=== PATIENT | male | born 1955 | race Caucasian/White ===

== ENCOUNTER → 2020-05-13 08:42 | Outpatient (BNVA) | payer MEDICARE, MEDICAID, SELFPAY | PROVIDERS: PCP Internal Medicine; Visit Provider Nurse Practitioner | DX: G47.9 Sleep disorder, unspecified (principal); R13.10 Dysphagia, unspecified | CPT/HCPCS: Q3014 ==

== ENCOUNTER 2020-10-29 14:19 | Emergency (ER) | payer MEDICARE, MEDICAID, SELFPAY ==
[2020-10-29 14:23] VITALS: BP 227/101; PULSE 78; RESP 18; TEMP 36.8; O2SAT 96; BMI 34.0
--- NOTE | 2020-10-29 16:10 | ED_ITS ---
HPI - General Adult General Chief complaint: Eye Problems Stated complaint: EYE INJ Time Seen by Provider: 10/29/20 14:26 History of Present Illness HPI narrative: This is a 65-year-old male with history of hypertension who has been noncompliant with his medications. The patient has refused to take his medications. Family states they were going to start to make sure he does take his medicines and will gind it up into a powder and give it to him if necessary. the patient also complains of an injury to his right eye area which occurred 3 days ago, when he was assembling a dog gate and hit his right upper orbit with a hammer. Patient has noted some bruising to the area but denies any visual change. The patient denies any symptoms of hypertension such as headache, visual change, chest pain, shortness of breath, focal weakness or numbness in his face or arms or legs. Patient is followed at [facility], and has been prescribed medicines by them. . Related Data Home Medications Medication Instructions Recorded Confirmed amlodipine 10 mg tablet 10 mg PO QAM 05/13/20 chlorthalidone 50 mg tablet 50 mg PO QAM 05/13/20 clonidine HCl 0.2 mg tablet 0.2 mg PO BID 05/13/20 ergocalciferol (vitamin D2) 1,250 1,250 mcg PO Q OTHER DAY 05/13/20 mcg (50,000 unit) capsule famotidine 40 mg tablet 40 mg PO BEDTIME 05/13/20 fenofibrate 160 mg tablet 160 mg PO BEDTIME 05/13/20 hydralazine 25 mg tablet 25 mg PO BID 05/13/20 lisinopril 40 mg tablet 40 mg PO DAILY 05/13/20 metoprolol succinate 200 mg 200 mg PO BEDTIME 05/13/20 tablet,extended release 24 hr omeprazole 20 mg capsule,delayed 20 mg PO DAILY 05/13/20 release pravastatin 40 mg tablet mg PO 05/13/20 prazosin 1 mg capsule 1 mg PO BEDTIME PRN 05/13/20 spironolactone 25 mg tablet 25 mg PO DAILY 05/13/20 Previous Rx's Medication Instructions Recorded amlodipine 10 mg PO DAILY #30 tab 10/29/20 clonidine HCl 0.2 mg PO BID #60 tab 10/29/20 hydralazine 25 mg PO TID #90 tab 10/29/20 lisinopril 40 mg PO DAILY #30 tab 10/29/20 metoprolol succinate 200 mg PO DAILY #30 ea 10/29/20 spironolactone 25 mg PO DAILY #30 tab 10/29/20 Allergies Allergy/AdvReac Type Severity Reaction Status Date / Time No Known Allergies Allergy Verified 10/29/20 14:22 [No Known Allergies*] Review of Systems Review of Systems: Yes all other systems are reviewed and are negative Constitutional: Constitutional: Reports as per HPI and Denies fever(s) Eyes: Eyes: Reports as per HPI and Reports no additional eye complaints Comments: bruising above right eye ENT: Reports system reviewed and no additional complaints, except as documented, Reports as per HPI, Denies nasal congestion, Denies nasal discharge and Denies sore throat Cardiovascular: Cardiovascular: Reports as per HPI, Denies chest pain and Denies dyspnea Respiratory: Respiratory: Reports as per HPI, Denies cough and Denies dyspnea Gastrointestinal: Gastrointestinal: Reports as per HPI, Denies abdominal pain, Denies diarrhea and Denies vomiting Genitourinary: Genitourinary: Reports as per HPI, Denies hematuria, Denies dysuria and Denies urinary frequency Musculoskeletal: Musculoskeletal: Reports no additional musculoskeletal co mplaints and Denies numbness Integumentary/Breasts: Skin/Breast: Reports as per HPI and Denies rash Neurologic: Reports as per HPI, Denies focal weakness, Denies numbness and Denies Sensory deficit (Neuro) Psychiatric: Psychiatric: Reports no additional psychiatric complaints and Reports as per HPI Endocrine: Endocrine: Reports no additional endocrine complaints and Reports as per HPI Hematologic/Lymphatic: Hematologic/Lymphatic: Reports no additional hematologi c/lymphatic complaints, Reports as per HPI and Reports other (No peripheral edema) [facility] Past Medical History Medical History (Updated 10/29/20 @ 16:08 by Kris Ng MD) Hypertension Surgical History Hx of colonoscopy Hx of hernia repair Family History Family History Father History of esophageal cancer Mother No problems noted. Sister No problems noted. Brother No problems noted. Social History Social History Household Members: Spouse and Children Alcohol intake: current Alcohol intake frequency: a few times a week Patient Tobacco Use Status: Never used Tobacco Use of substances other than those prescribed or required for medical reasons: No Advance Directives: No Advance Directives Information Provided: No Current occupational status: retired Physical Exam Vital Signs: Vital Signs: Last Vital Signs Temp 98.3 F 10/29/20 14:23 Pulse 70 10/29/20 17:23 Resp 18 10/29/20 17:23 BP 174/84 H 10/29/20 17:26 Pulse Ox 96 10/29/20 17:23 Body Mass Index 34.0 Const: General: cooperative, no acute distress and alert Orientation/consciousness: patient oriented x3 HENMT: Head: Yes normal to inspection and Yes other ( Mild bruising right upper orbit, no bony tenderness. Globe itself appear) Eyes: General: appearance normal, both eyes and all related structures Eyelids: Yes eyelids normal Conjunctivae: conjunctivae normal Pupils: Equal, round and reactive pupils present Neck: Neck: Yes normal visual inspection and Yes supple Chest: Chest palpation & inspection: normal inspection of the chest Resp: Effort & Inspection: normal respiratory effort Auscultation: clear to auscultation bilaterally Cardio: Rate: regular rate Rhythm: regular rhythm Heart sounds: S1 normal heart sound present, S2 normal heart sound present, no gallops, no murmurs and no rubs GI: Palpation (GI): Soft to palpation, nontender and Other GI palpation findings present (Non-distended) Auscultation: normal bowel sounds Skin: General skin exam: no rashes or lesions noted Neuro: General: patient oriented x3, no focal motor deficits and CN's II-XI intact bilaterally Cranial nerves: Yes Equal, round and reactive pupils present Cognition (Neuro): normal cognition Motor exam (neuro): 5/5 motor strength present throughout Sensory Exam: No Sensory deficit (Neuro) Extrem: General: Yes normal to inspection and Yes no pedal edema Psych: Appearance: grossly normal Affect: normal affect Medical Decision Making MDM Narrative Medical decision making narrative: the patient has been noncompliant with his blood pressure medicines, of which there are several. I called his pharmacy to verify his prescriptions. I have refilled most of them, but since hydrochlorothiazide and forth valid own are of the same type, I am only refilling the hydrochlorothiazide; he can follow up with primary care physician to have his blood pressure medications adjusted as needed, especially in light of the fact that he is on several blood pressure medications. The patient did have labs done late in 2019 and had normal renal function; did not feel needs repeat labs today. Patient has not had any symptoms of hypertension and presented today because of a mild right orbital contusion. Discharge Plan Discharge Clinical Impression: Hypertension, Periorbital contusion Patient Disposition: Home, Self-Care Instructions: Chronic Hypertension (ED) Additional Instructions: follow-up with your primary doctor at [facility] within the next week for re-evaluation.. Make sure to restart your medications as prescribed. Return for any new or worsened symptoms. Prescriptions: New spironolactone 25 mg tablet 25 mg PO DAILY Qty: 30 RF: 1 clonidine HCl 0.2 mg tablet 0.2 mg PO BID Qty: 60 RF: 1 hydralazine 25 mg tablet 25 mg PO TID Qty: 90 RF: 1 lisinopril 40 mg tablet 40 mg PO DAILY Qty: 30 RF: 1 metoprolol succinate 200 mg capsule,citlali,ER 24hr 200 mg PO DAILY Qty: 30 RF: 1 amlodipine 10 mg tablet 10 mg PO DAILY Qty: 30 RF: 1 Interventions: ED Discharge Assessment Last Done: 10/29/20 17:24 Discharge Date/Time: 10/29/20 17:26
[2020-10-29 16:12] VITALS: BP 205/95; PULSE 71; RESP 17; O2SAT 97
[2020-10-29 16:22] VITALS: BP 205/92; PULSE 70
[2020-10-29] MEDS: cloNIDine HCL 0.2 MG TABLET PO (16:22)
[2020-10-29] MEDS: lisinopriL 40 MG TABLET PO (16:22)
[2020-10-29] MEDS: amLODIPine Besylate 10 MG TABLET PO (16:22)
[2020-10-29 17:00] VITALS: BP 187/87; RESP 20
[2020-10-29 17:23] VITALS: BP 154/74; PULSE 70; RESP 18; O2SAT 96
[2020-10-29 17:26] VITALS: BP 174/84
== END 2020-10-29 17:26 | disposition home or self-care (01) ==
PROVIDERS: Emergency Provider Emergency Medicine; PCP Internal Medicine
DX: S00.11XA Contusion of right eyelid and periocular area, initial encounter (principal); I10 Essential (primary) hypertension; W22.8XXA Striking against or struck by other objects, initial encounter; Y93.9 Activity, unspecified; Y92.9 Unspecified place or not applicable; Y99.9 Unspecified external cause status; Z91.14 Patient's other noncompliance with medication regimen
CPT/HCPCS: 99283; 99284

== ENCOUNTER 2021-03-12 16:54 | Inpatient (IN) | payer MEDICARE, MEDICAID, SELFPAY ==
[2021-03-12] VITALS (7 sets, daily range): BP systolic 150–236; BP diastolic 79–110; PULSE 77–120; RESP 18–28; TEMP 37.2; O2SAT 95–98; BMI 28.1
--- NOTE | ~2021-03-12 | CT_ITS ---
EXAMINATION: CT HEAD WITHOUT CONTRAST CLINICAL INFORMATION: Follow-up intracranial bleed. COMPARISON: CT head 03/12/2021 TECHNIQUE: Contiguous axial imaging was performed from the skull base to vertex without intravenous administration of contrast. Coronal and sagittal reformatted images are performed at CT scanner. This CT examination was performed using dose optimization techniques as appropriate, variously including the following: *Automated exposure control *Adjustment of mA and/or kV according to patient size (this includes techniques or standardized protocols for targeted exams where dose is matched to indication/reason for exam; i.e. extremities or head) *Use of iterative reconstruction technique DLP: 628. mGy-cm FINDINGS: Redemonstration of a focal hypodense lesion most consistent with a bleed in the right parietal-occipital area. The surrounding small volume of edema. Hyperdensity measures 1.5 cm. Consider MRI without and with contrast for further assessment. This may help assessment whether this focal hemorrhagic lesion is due to an underlying mass. There is mild generalized atrophy with hypodensity the periventricular white matter. Small lacunar infarcts left basal ganglia. There is a calcification in the internal carotid arteries. CT/CT head/brain wo con IMPRESSION: No change in the hyperdense focus consistent with a hemorrhagic lesion measuring about 1.5 cm in the right parietal-occipital lobe. Consider follow-up MRI without and with contrast for further evaluation.
--- NOTE | ~2021-03-12 | XR_ITS ---
EXAMINATION: XR CHEST CLINICAL INFORMATION: Mental status change COMPARISON: Chest x-ray 07/02/2019 TECHNIQUE: Frontal portable view of the chest was obtained. 6:29 PM FINDINGS: No significant abnormality is noted involving the heart, lungs, mediastinum, bony thorax or soft tissues. XR/XR chest 1V IMPRESSION: Unremarkable examination.
--- NOTE | ~2021-03-12 | CT_ITS ---
EXAMINATION: CT HEAD WITHOUT CONTRAST CLINICAL INFORMATION: Mental status change COMPARISON: None TECHNIQUE: Contiguous axial imaging was performed from the skull base to vertex without intravenous administration of contrast. Coronal and sagittal reformatted images are performed at CT scanner This CT examination was performed using dose optimization techniques as appropriate, variously including the following: *Automated exposure control *Adjustment of mA and/or kV according to patient size (this includes techniques or standardized protocols for targeted exams where dose is matched to indication/reason for exam; i.e. extremities or head) *Use of iterative reconstruction technique DLP: 964 mGy-cm FINDINGS: Dense focus of intraparenchymal hemorrhage in the right parietal-occipital lobe. This involves the tejada-white junction area in the cortex. Bleed measures about 1.5 cm in diameter. There is low attenuation, edema, surrounding the lesion. No significant mass effect however. No midline shift. No additional hemorrhagic or mass lesions. No extra-axial collection. There is a small old lacunar infarct in the left head of the caudate. There is generalized global volume loss. There is mild prominence of the ventricles and the sulci . There is mild hypodensity of the periventricular white matter due to chronic small vessel ischemic disease. There are vascular calcifications of the internal carotid arteries bilaterally.. CT/CT head/brain wo con IMPRESSION: Focal intraparenchymal hemorrhage in the right parietal-occipital lobe. Small volume of surrounding edema without significant mass effect. This critical result was discussed with Alisia Marvin on 03/12/2021, 7:00 PM and it was ascertained that the content and urgency of the report was understood at the time of direct communication.
--- NOTE | 2021-03-12 18:11 | ECG_ITS ---
Test Reason : AMS Blood Pressure : / mmHG Vent. Rate : 105 BPM Atrial Rate : 105 BPM P-R Int : 178 ms QRS Dur : 080 ms QT Int : 340 ms P-R-T Axes : 031 000 092 degrees QTc Int : 449 ms Sinus tachycardia Minimal voltage criteria for LVH, may be normal variant ( R in aVL ) Nonspecific ST and T wave abnormality Lateral leads Abnormal ECG When compared with ECG of 02-JUL-2019 14:03, Nonspecific T wave abnormality no longer evident in Inferior leads ST more depressed Lateral leads Heart rate has increased Referred By: Alisia Marvin Electronically Signed By:CARIE LANGFORD MD
--- NOTE | 2021-03-12 18:16 | ED_ITS ---
HPI - General Adult General Chief complaint: Altered Mental Status Stated complaint: ? sepsis Time Seen by Provider: 03/12/21 18:09 Source: patient, family (Spouse), EMS and court interpreter Mode of arrival: EMS Limitations: no limitations History of Present Illness HPI narrative: 65 years old male came in for evaluation of mental status change. 65-year-old male history of hypertension on amlodipine for high blood pressure patient appears to be noncompliant with his medication stated that patient was at his normal baseline then suddenly patient became anxious and vomited once, patient end up going to the bathroom, patient became incoherent for short time, patient was brought into the hospital for further evaluation, patient in the hospital complained of no symptoms, no headache, no blurry vision, no dizzin ess, no chest pain, no abdominal pain, no nausea, no vomiting. found to have high blood pressure. Related Data Home Medications Medication Instructions Recorded Confirmed chlorthalidone 50 mg tablet 50 mg PO QAM 05/13/20 03/12/21 ergocalciferol (vitamin D2) 1,250 1,250 mcg PO Q7D 05/13/20 03/12/21 mcg (50,000 unit) capsule famotidine 40 mg tablet 40 mg PO BEDTIME 05/13/20 03/12/21 fenofibrate 160 mg tablet 160 mg PO BEDTIME 05/13/20 03/12/21 metoprolol succinate 200 mg 200 mg PO BEDTIME 05/13/20 03/12/21 tablet,extended release 24 hr omeprazole 20 mg capsule,delayed 20 mg PO DAILY 05/13/20 03/12/21 release pravastatin 40 mg tablet 40 mg PO DAILY 05/13/20 03/12/21 prazosin 1 mg capsule 1 mg PO BEDTIME PRN 05/13/20 03/12/21 Previous Rx's Medication Instructions Recorded amlodipine 10 mg tablet 10 mg PO DAILY #30 tab 10/29/20 clonidine HCl 0.2 mg tablet 0.2 mg PO BID #60 tab 10/29/20 hydralazine 25 mg tablet 25 mg PO TID #90 tab 10/29/20 lisinopril 40 mg tablet 40 mg PO DAILY #30 tab 10/29/20 spironolactone 25 mg tablet 25 mg PO DAILY #30 tab 10/29/20 Allergies Allergy/AdvReac Type Severity Reaction Status Date / Time No Known Allergies Allergy Verified 10/29/20 14:22 [No Known Allergies*] Review of Systems Review of Systems: All other systems are reviewed and are negative Constitutional: Reports as per HPI and Reports no additional constitutional complaints Eyes: Reports as per HPI and Reports no additional eye complaints Reports system reviewed and no additional complaints, except as documented Cardiovascular: Reports as per HPI and Reports no additional cardiovascular complaints Respiratory: Reports as per HPI and Reports no additional respiratory complaints Gastrointestinal: Reports as per HPI and Reports no additional gastrointestinal complaints Genitourinary: Reports no additional female genitourinary complaints Musculoskeletal: Reports no additional musculoskeletal complaints Skin/Breast: Reports system reviewed and no additional complaints, except as docu Psychiatric: Reports no additional psychiatric complaints Endocrine: Reports no additional endocrine complaints Hematologic/Lymphatic: Reports no additional hematologic/lymphatic complaints Allergic/Immunologic: Reports no additional allergic/immunologic complaints Reports system reviewed and no additional complaints, except as documented and Reports Abnormal speech present PMFSH Past Medical History Medical History Hypertension Surgical History Hx of colonoscopy Hx of hernia repair Family History Family History Father History of esophageal cancer Mother No problems noted. Sister No problems noted. Brother No problems noted. Social History Social History Household Members: Spouse and Children Alcohol intake: current Alcohol intake frequency: a few times a week Patient Tobacco Use Status: Never used Tobacco Currently Displaying Signs/Symptoms of Drug Intoxication Withdrawal: No Advance Directives: No Advance Directives Information Provided: No Do you have thoughts of harming others: None Do you have a plan to hurt others: No Plan Current occupational status: retired Physical Exam Vital Signs: Vital Signs: Last Vital Signs Temp 98.5 F 03/13/21 01:00 Pulse 87 03/13/21 01:00 Resp 29 H 03/13/21 01:00 BP 182/85 H 03/13/21 01:00 Pulse Ox 95 03/13/21 01:00 Oxygen Flow Rate 2 03/12/21 17:23 Body Mass Index 28.1 Vital signs have been reviewed as appeared to be correct. Blood pressure elevated. Heart rate elevated. Respiration rate elevated. Temperature normal. Oxygen saturation normal. Appearance: Alert. Oriented X3. No acute distress. Head: Normal external exam. Normocephalic. Atraumatic. No Cardenas signs noted. No raccoon eyes noted Eyes: PERRLA. EOMI. Conjunctiva and sclera normal. Eyelids normal. ENT: TM's Normal. Pharynx normal. Uvula midline. Moist mucous membranes. No trismus noted. No drooling noted. No muffled voice noted. Neck: Normal inspection. Neck supple. FROM. No adenopathy. Thyroid Normal. No meningeal signs. No neck mass noted. CVS: Normal heart rate and rhythm. Heart sound normal. No murmurs noted. Pulses normal throughout. Respiratory: No respiratory distress. Painless inspiration. Breath sounds normal. No wheezes/rales/rhonchi noted. Chest nontender. No accessory muscle usage noted or decreased air movement noted. Abdomen: Soft and nontender. Bowel sounds normal in all 4 quadrants. No distention noted. No organomegaly noted. No visible injury noted. Back: No CVA tenderness. Full range of motion noted. Skin: Skin warm and dry. Normal skin color. Normal skin turgor. No rashes/lesions/lacerations noted. Extremities: No lower extremity edema. Extremities exhibit normal range of motion. Extremities nontender. Neuro: Oriented X 3. Cranial nerve exam: II-XII are grossly intact No motor deficit. No sensory deficit. Reflexes normal. Course Course Course Narrative: Assessment and plan. 65-year-old male history of hypertension, noncompliant with medication, came in with transient mental status change, patient found to have normal neuro exam with no deficit, CT showed small right accept to parietal intraparenchymal bleed appear to be hypertensive in origin, no midline shift or mass effect of the blee d, initially patient's blood pressure was elevated, controlled with 20 mg of labetalol now it is 168/79, after several attempts to transfer the patient to [facility] were there is no bed available, case discussed with Dr. Ojeda who approved admitting the patient to our ICU with blood pressure control and close monitoring of the blood pressure, the case discussed with Dr. Loaiza who accepted the admission to ICU. Medical Decision Making Lab Data Lab results reviewed: Yes I reviewed the patient's lab results. Result diagrams: 03/12/21 18:53 03/12/21 19:30 Labs: Lab Results 03/12/21 03/12/21 03/12/21 Range/Units 18:53 18:53 18:53 WBC 10.6 (4.8-10.8) X10*3/uL RBC 5.48 (4.60-5.80) X10*6/uL Hgb 16.8 (14.0-18.0) g/dl Hct 48.7 (42.0-52.0) % MCV 88.9 (80.0-98.0) fL MCH 30.7 (27.0-33.0) pg MCHC 34.5 (31.0-36.0) g/dl RDW 11.9 (11.0-16.0) % Plt Count 205 (160-400) X10*3/uL MPV 9.5 (9.4-12.4) fL Immature Gran % (Auto) 0.3 (0.0-0.4) % Neut % (Auto) 86.8 H (45-73) % Lymph % (Auto) 5.8 L (20-40) % [place] % (Auto) 5.7 (2-11) % Eos % (Auto) 0.8 (0-4) % Baso % (Auto) 0.6 (0-2) % Lymph # (Auto) 0.6 L (1.2-4.9) X10*3/uL [place] # (Auto) 0.6 (0.1-1.2) X10*3/uL Eos # (Auto) 0.1 (0.0-0.4) X10*3/uL Baso # (Auto) 0.1 (0.0-0.2) X10*3/uL Abs Immat Gran (auto) 0.03 (0.00-0.03) X10*3/uL Absolute Neuts (auto) 9.2 H (2.0-8.3) x10*3/uL Absolute Nucleated RBC 0.000 (0.0-0.012) X10*3/uL Nucleated RBC % (auto) 0.0 (0.0-0.2) /100WBC Sodium (135-145) mmol/L Potassium (3.3-5.1) mmol/L Chloride (96-108) mmol/L Carbon Dioxide (22-29) mmol/L Anion Gap (12-20) BUN (9-16) mg/dL Creatinine (0.5-1.4) mg/dL Estim Creat Clear Calc Estimated GFR Random Glucose (60-115) mg/dL Lactic Acid (0.5-2.0) mmol/L Calcium (8.4-10.2) mg/dL Total Bilirubin (0.0-1.0) mg/dL Direct Bilirubin (0.0-0.5) mg/dL AST (5-37) U/L ALT (0-40) U/L Alkaline Phosphatase (39-117) U/L Troponin I High Sens 20.4 (<3.5-35.0) ng/L B-Natriuretic Peptide 86 (<100) pg/mL Total Protein (6.5-8.0) g/dL Albumin (3.5-5.0) g/dL Lipase (8-78) U/L Urine Color Urine Appearance Urine pH (5.0-8.0) Ur Specific [place] (1.005-1.025) Urine Protein (NEG-TRACE) MG/DL Urine Glucose (UA) (NEG) MG/DL Urine Ketones (NEG) MG/DL Urine Blood (NEG) Urine Nitrite (NEG) Ur Leukocyte Esterase (NEG) Urine RBC (0) /HPF Urine WBC (0-4) /HPF Ur Squamous Epith Cells /LPF Amorphous Sediment /LPF Urine Bacteria /LPF COVID-19 (SUSI) Negative (Negative) COVID-19 Clin Com See Note 03/12/21 03/12/21 03/12/21 Range/Units 18:53 18:53 19:30 WBC (4.8-10.8) X10*3/uL RBC (4.60-5.80) X10*6/uL Hgb (14.0-18.0) g/dl Hct (42.0-52.0) % MCV (80.0-98.0) fL MCH (27.0-33.0) pg MCHC (31.0-36.0) g/dl RDW (11.0-16.0) % Plt Count (160-400) X10*3/uL MPV (9.4-12.4) fL Immature Gran % (Auto) (0.0-0.4) % Neut % (Auto) (45-73) % Lymph % (Auto) (20-40) % [place] % (Auto) (2-11) % Eos % (Auto) (0-4) % Baso % (Auto) (0-2) % Lymph # (Auto) (1.2-4.9) X10*3/uL [place] # (Auto) (0.1-1.2) X10*3/uL Eos # (Auto) (0.0-0.4) X10*3/uL Baso # (Auto) (0.0-0.2) X10*3/uL Abs Immat Gran (auto) (0.00-0.03) X10*3/uL Absolute Neuts (auto) (2.0-8.3) x10*3/uL Absolute Nucleated RBC (0.0-0.012) X10*3/uL Nucleated RBC % (auto) (0.0-0.2) /100WBC Sodium 136 (135-145) mmol/L Potassium 3.9 (3.3-5.1) mmol/L Chloride 104 (96-108) mmol/L Carbon Dioxide 23 (22-29) mmol/L Anion Gap 13 (12-20) BUN 11 (9-16) mg/dL Creatinine 0.96 (0.5-1.4) mg/dL Estim Creat Clear Calc 83.6 Estimated GFR > 60 Random Glucose 132 H (60-115) mg/dL Lactic Acid 2.6 H* (0.5-2.0) mmol/L Calcium 9.2 (8.4-10.2) mg/dL Total Bilirubin 0.6 (0.0-1.0) mg/dL Direct Bilirubin 0.3 (0.0-0.5) mg/dL AST 39 H (5-37) U/L ALT 35 (0-40) U/L Alkaline Phosphatase 134 H (39-117) U/L Troponin I High Sens (<3.5-35.0) ng/L B-Natriuretic Peptide (<100) pg/mL Total Protein 7.2 (6.5-8.0) g/dL Albumin 4.1 (3.5-5.0) g/dL Lipase 31 (8-78) U/L Urine Color YELLOW Urine Appearance CLEAR Urine pH 6.5 (5.0-8.0) Ur Specific [place] 1.025 (1.005-1.025) Urine Protein 3+ H (NEG-TRACE) MG/DL Urine Glucose (UA) 100 H (NEG) MG/DL Urine Ketones NEG (NEG) MG/DL Urine Blood TRACE (NEG) Urine Nitrite NEG (NEG) Ur Leukocyte Esterase NEG (NEG) Urine RBC 0-2 (0) /HPF Urine WBC 1-4 (0-4) /HPF Ur Squamous Epith Cells TRACE /LPF Amorphous Sediment TRACE /LPF Urine Bacteria NONE /LPF COVID-19 (SUSI) (Negative) COVID-19 Clin Com Imaging Data CT scan - head: Radiologist's impression: Focal intraparenchymal hemorrhage in the right parietal-occipital lobe. Small volume of surrounding edema without significant mass effect. ? ECG Data Attestation: I personally reviewed and interpreted this ECG as follows: Interpretation: Focal intraparenchymal hemorrhage in the right parietal- occipital lobe. Small volume of surrounding edema without significant mass effect. ? Critical Care Time Critical Care Time Critical Care Time: Yes Total Critical Care Time: 60 Attestation: I spent 60 minutes providing critical care service to the patient, this including time spent at the bedside to evaluate the patient, reassess the patient, monitoring vital signs, review labs, and radiographic studies, counseling the patient/family, discussing the case with consultants, disposition the patient. Discharge Plan Discharge Clinical Impression: Hypertensive emergency, Cerebral parenchymal hemorrhage Patient Disposition: Admitted As Inpatient Interventions: Admission Worksheet (ED) Last Done: 03/13/21 00:25 Discharge Date/Time: 03/13/21 00:25
[2021-03-12] MEDS: Labetalol HCL 100 MG/20 ML VIAL 20 MG IVPUSH (18:44)
[2021-03-12] MEDS: 0.9 % Sodium Chloride 1,000 ML 999 ML IVCONT (18:44)
[2021-03-12 19:04] LABS: Appearance Urine CLEAR; Color Urine YELLOW; Glucose Urine UA 100 MG/DL (NEG); Leukocyte Esterase Urine NEG (NEG); Nitrite Urine NEG (NEG); PH 6.5 (5.0-8.0); Specific Gravity - Urine 1.025 (1.005-1.025); UACC Culture Trigger NO; Urine Blood TRACE (NEG); Urine Ketones NEG (NEG); Urine Protein 3+ MG/DL (NEG-TRACE)
[2021-03-12 19:14] LABS: Lactic Acid 2.6 mmol/L (0.5-2.0)
[2021-03-12 19:17] LABS: COVID-19 Test Negative (Negative)
[2021-03-12 19:21] LABS: B Type Natriuretic Peptide 86 pg/mL (<100); Troponin-I High Sensitivity 20.4 ng/L (<3.5-35.0)
[2021-03-12 19:22] LABS: Amorphous Sediment Urine TRACE /LPF; RBC Urine 0-2 /HPF (0); Squamous Epithelial Cell Urine TRACE /LPF
[2021-03-12 19:54] LABS: Alanine Aminotransferase 35 U/L (0-40); Albumin Level 4.1 g/dL (3.5-5.0); Alkaline Phosphatase 134 U/L (39-117); Anion Gap 13 (12-20); Aspartate Amino Transferase 39 U/L (5-37); Bilirubin Direct 0.3 mg/dL (0.0-0.5); Bilirubin Total 0.6 mg/dL (0.0-1.0); Blood Urea Nitrogen 11 mg/dL (9-16); Calcium 9.2 mg/dL (8.4-10.2); Carbon Dioxide 23 mmol/L (22-29); Chloride 104 mmol/L (96-108); Creatinine Clr Calc Pharmacy 83.6; Estimated Glomerular Filt Rate > 60; Glucose Random 132 mg/dL (60-115); Lipase 31 U/L (8-78); Potassium 3.9 mmol/L (3.3-5.1); Sodium 136 mmol/L (135-145); Total Protein 7.2 g/dL (6.5-8.0)
[2021-03-12 20:55] LABS: MANUAL DIFF FLAG NO
[2021-03-12 20:57] LABS: Basophils Absolute Auto 0.1 X10*3/uL (0.0-0.2); Basophils Percent Auto 0.6 % (0-2); Eosinophils Absolute Auto 0.1 X10*3/uL (0.0-0.4); Eosinophils Percent Auto 0.8 % (0-4); Hematocrit 48.7 % (42.0-52.0); Hemoglobin 16.8 g/dl (14.0-18.0); Imm Gran Abs Auto 0.03 X10*3/uL (0.00-0.03); Imm Gran Pct Auto 0.3 % (0.0-0.4); Lymphocytes Absolute Auto 0.6 X10*3/uL (1.2-4.9); Lymphocytes Percent Auto 5.8 % (20-40); Mean Corpuscular HGB Conc 34.5 g/dl (31.0-36.0); Mean Corpuscular Hemoglobin 30.7 pg (27.0-33.0); Mean Corpuscular Volume 88.9 fL (80.0-98.0); Mean Platelet Volume 9.5 fL (9.4-12.4); Monocytes Absolute Auto 0.6 X10*3/uL (0.1-1.2); Monocytes Percent Auto 5.7 % (2-11); Neutrophils Absolute Auto 9.2 x10*3/uL (2.0-8.3); Neutrophils Percent Auto 86.8 % (45-73); Platelet Count 205 X10*3/uL (160-400); Red Blood Count 5.48 X10*6/uL (4.60-5.80); Red Cell Distribution Width 11.9 % (11.0-16.0); Reflex Lactate? Lactic Acid Added; White Blood Count 10.6 X10*3/uL (4.8-10.8)
--- NOTE | 2021-03-12 21:29 | P.HPCC_ITS ---
History of Present Illness Date of Service: 03/12/21 Attending physician on admission: Sammy Rodriguez Chief Complaint: Altered mental status The patient is a 65-year-old male primarily Cypriot-speaking ?with a past medical history of hypertension (noncompliant with medication), PREET, high tanner sterol and DIAZ, who presented to the emergency room via ambulance with complaints of altered mental status. ?Patient?s and reported he was confused, anxious and became incoherent for short period time this is why she called the ambulance.? Patient does admit to not taking blood pressure medica tions for at least a month. He denied blurred vision, headache, dizziness.? He denies any recent fevers shakes or chills.? No abdominal pain no nausea no vomiting. ? Patient initial vital signs temp 98.9?, pulse 112, respiratory rate 28, and blood pressure 200/107. Head CT showed? intraparenchymal hemorrhage in the right parietal-occipital lobe, measuring 1.5cm involving ?the tejada-white junction area in the cortext. Small surrounding edema.? ED attempted to transfer patient to [facility] but no bed available.? Neurology was consulted, Dr. Ojeda approved for patient to be admitted in ICU for closely blood pressure monitoring and control ED course:? He received amlodipine 10 mg p.o., 20 mg of labetalol and 1l NS bolus Patient will be admitted for management on intraparenchymal hemorrhage and hypertensive emergency requiring Cardene drip. Review of Systems Review of Systems: As per HPI Yes all other systems are reviewed and are negative [facility] Past Medical History Medical History Hypertension Family History Family History Father History of esophageal cancer Mother No problems noted. Sister No problems noted. Brother No problems noted. Surgical History Surgical History Hx of colonoscopy Hx of hernia repair Social History Social History Household Members: Spouse and Children Alcohol intake: current Alcohol intake frequency: a few times a week Patient Tobacco Use Status: Never used Tobacco Advance Directives: No Advance Directives Information Provided: No Current occupational status: retired [employer] Allergies Allergy/AdvReac Type Severity Reaction Status Date / Time No Known Allergies Allergy Verified 10/29/20 14:22 [No Known Allergies*] Active Medications: Current Medications Acetaminophen (Acetaminophen 325 Mg Tablet) 650 mg PO Q6H PRN PRN Reason: Pain, Moderate (Pain Scale 4-6 Pharmacy Consult (Consult Rx Perform Med Rec) 1 each MISCELLANE ONCE PRN PRN Reason: Consult order Home Medications Medication Instructions Recorded Confirmed Last Taken Type chlorthalidone 50 mg tablet 50 mg PO QAM 05/13/20 03/12/21 Unknown History ergocalciferol (vitamin D2) 1,250 1,250 mcg PO Q7D 05/13/20 03/12/21 Unknown History mcg (50,000 unit) capsule famotidine 40 mg tablet 40 mg PO BEDTIME 05/13/20 03/12/21 Unknown History fenofibrate 160 mg tablet 160 mg PO BEDTIME 05/13/20 03/12/21 Unknown History metoprolol succinate 200 mg 200 mg PO BEDTIME 05/13/20 03/12/21 Unknown History tablet,extended release 24 hr omeprazole 20 mg capsule,delayed 20 mg PO DAILY 05/13/20 03/12/21 Unknown History release pravastatin 40 mg tablet 40 mg PO DAILY 05/13/20 03/12/21 Unknown History prazosin 1 mg capsule 1 mg PO BEDTIME PRN 05/13/20 03/12/21 Unknown History Physical Exam Vital Signs: Vital Signs: Last Vital Signs Temp 98.9 F 03/12/21 17:23 Pulse 85 03/12/21 20:22 Resp 18 03/12/21 20:22 BP 168/79 H 03/12/21 20:22 Pulse Ox 97 03/12/21 20:22 Oxygen Flow Rate 2 03/12/21 17:23 Body Mass Index 28.1 Constitutional: Alert, in no distress. Sitting comfortably on the hospital bed. Mental Status: Oriented to person, place and time. Head: Normocephalic. Eyes: Pupils are equal, round and reactive to light. Extraocular muscles intact. Ear, Nose and Throat: Oropharynx clear, mucous membranes moist. Ears and nose without masses, lesions or deformities. Trachea midline. Neck: Supple, Full range of motion. Respiratory: Lungs CTA in all lung pruitt.? Cardiovascular: Sinus. S1 S2 regular. No murmurs, rubs or gallops. Gastrointestinal: Abdomen soft, non-tender, non-distended. Normal bowel sounds. No pulsatile mass. No hepatosplenomegaly. Genitourinary: No costovertebral angle tenderness. Neurologic: No focal neurological deficits. Moves all extremities spontaneously. Sensation intact bilaterally. Skin: No rashes or lesions. No petechiae or purpura. 1er extremity.? Trace pitting edema of right lower extremity. Musculoskeletal: Right middle finger amputation. No cyanosis or clubbing. Normal range of motion. Psychiatric: Normal mood and affect Results Labs CBC and Chem 7: 03/12/21 18:53 03/12/21 19:30 Labs: Laboratory Results - last 24 hr 03/12/21 03/12/21 03/12/21 18:53 18:53 18:53 MCV 88.9 MCH 30.7 MCHC 34.5 RDW 11.9 Plt Count 205 MPV 9.5 Immature Gran % (Auto) 0.3 Neut % (Auto) 86.8 H Lymph % (Auto) 5.8 L [place] % (Auto) 5.7 Eos % (Auto) 0.8 Baso % (Auto) 0.6 Lymph # (Auto) 0.6 L [place] # (Auto) 0.6 Eos # (Auto) 0.1 Baso # (Auto) 0.1 Abs Immat Gran (auto) 0.03 Absolute Neuts (auto) 9.2 H Absolute Nucleated RBC 0.000 Nucleated RBC % (auto) 0.0 Anion Gap Estim Creat Clear Calc Estimated GFR Random Glucose Lactic Acid Calcium Total Bilirubin Direct Bilirubin AST ALT Alkaline Phosphatase Troponin I High Sens 20.4 B-Natriuretic Peptide 86 Total Protein Albumin Lipase Urine Color Urine Appearance Urine pH Ur Specific [place] Urine Protein Urine Glucose (UA) Urine Ketones Urine Blood Urine Nitrite Ur Leukocyte Esterase Urine RBC Urine WBC Ur Squamous Epith Cells Amorphous Sediment Urine Bacteria COVID-19 (SUSI) Negative COVID-19 Clin Com See Note 03/12/21 03/12/21 03/12/21 18:53 18:53 19:30 MCV MCH MCHC RDW Plt Count MPV Immature Gran % (Auto) Neut % (Auto) Lymph % (Auto) [place] % (Auto) Eos % (Auto) Baso % (Auto) Lymph # (Auto) [place] # (Auto) Eos # (Auto) Baso # (Auto) Abs Immat Gran (auto) Absolute Neuts (auto) Absolute Nucleated RBC Nucleated RBC % (auto) Anion Gap 13 Estim Creat Clear Calc 83.6 Estimated GFR > 60 Random Glucose 132 H Lactic Acid 2.6 H* Calcium 9.2 Total Bilirubin 0.6 Direct Bilirubin 0.3 AST 39 H ALT 35 Alkaline Phosphatase 134 H Troponin I High Sens B-Natriuretic Peptide Total Protein 7.2 Albumin 4.1 Lipase 31 Urine Color YELLOW Urine Appearance CLEAR Urine pH 6.5 Ur Specific [place] 1.025 Urine Protein 3+ H Urine Glucose (UA) 100 H Urine Ketones NEG Urine Blood TRACE Urine Nitrite NEG Ur Leukocyte Esterase NEG Urine RBC 0-2 Urine WBC 1-4 Ur Squamous Epith Cells TRACE Amorphous Sediment TRACE Urine Bacteria NONE COVID-19 (SUSI) COVID-19 Clin Com Imaging Radiologist's Impressions: Impressions Chest X-Ray 03/12/21 18:11 IMPRESSION: Unremarkable examination. Head CT 03/12/21 18:11 IMPRESSION: Focal intraparenchymal hemorrhage in the right parietal-occipital lobe. Small volume of surrounding edema without significant mass effect. This critical result was discussed with Alisia Marvin on 03/12/2021, 7:00 PM and it was ascertained that the content and urgency of the report was understood at the time of direct communication. Assessment and Plan (1) Intracranial bleed: Status: Acute (2) Hypertensive emergency: Status: Acute 65-year-old male with past medical history noncompliant hypertension admitted for intraparenchymal hemorrhage and hypertensive emergency Neuro:? Intraparenchymal hemorrhage:? This is likely during from poorly controlled hypertension. ?Patient has no neuro deficits.? Neurology consulted and advise blood pressure control. Neurology service care appreciated. Will continue with blood pressure control.? SBP goal <160. Continue frequent neuro assessments. ?? Cardiac:??? Hypertensive Emergency-?patient admits to not taking blood pressure medications for about a month, reports he was ?feeling good and did not need them?. Will start patient on cardene drip. SBP goal <160. Echo in the am. Pulmonary:??No acute issues Renal:?No acute issues.?? ID: No acute issues.?? GI:? No acute issues.?? Heme/Onc:? No acute issues. Psych:? No acute issues. Miscellaneous:? No acute issues. Prophylaxis:? Compression device due to bleed, ? does not require GI prophylaxis Diet: ? Cardiac diet CODE: FULL code Critical care time: ?x 60 minutes Case discussed with attending Dr Rodriguez Critical Care Time Critical Care Time (minutes): 60
--- NOTE | 2021-03-12 21:42 | PC.NURSE ---
pt is a icu admit, icu sql database developer states to treat bp to keep sbp below 160 . 168/ is ok if still coming down. pt has headache and is being treated with tylenol po. pt is at bedside and I feel his bp is elevated partly due to her.
[2021-03-12 21:44] LABS: ~Lactic Acid-LAB USE ONLY 1.9 mmol/L (0.5-2.0)
[2021-03-12] MEDS: Acetaminophen 325 MG TABLET 650 MG PO (21:49)
--- NOTE | 2021-03-12 22:35 | PC.NURSE ---
has gone home and pt is resting, eval bp after her leaving and is coming down from 180/78 to 174/78..check in 15 min and if not improved will give labetalol.
[2021-03-13] VITALS (30 sets, daily range): BP systolic 133–183; BP diastolic 48–88; PULSE 66–102; RESP 13–29; TEMP 36–37.2; O2SAT 94–99; BMI 27.1; BMI 27.0
[2021-03-13] MEDS: niCARdipine HCL 25 MG in 0.9 % Sodium Chloride 250 ML 52 MG IVCONT ×2 (00:49→09:43)
[2021-03-13 05:41] LABS: MANUAL DIFF FLAG NO
[2021-03-13 05:48] LABS: Basophils Absolute Auto 0.1 X10*3/uL (0.0-0.2); Basophils Percent Auto 0.8 % (0-2); Eosinophils Absolute Auto 0.3 X10*3/uL (0.0-0.4); Eosinophils Percent Auto 4.1 % (0-4); Hematocrit 44.2 % (42.0-52.0); Hemoglobin 15.7 g/dl (14.0-18.0); Imm Gran Abs Auto 0.02 X10*3/uL (0.00-0.03); Imm Gran Pct Auto 0.3 % (0.0-0.4); Mean Corpuscular HGB Conc 35.5 g/dl (31.0-36.0); Mean Corpuscular Hemoglobin 31.4 pg (27.0-33.0); Mean Corpuscular Volume 88.4 fL (80.0-98.0); Mean Platelet Volume 8.9 fL (9.4-12.4); Monocytes Absolute Auto 0.7 X10*3/uL (0.1-1.2); Monocytes Percent Auto 9.2 % (2-11); Neutrophils Absolute Auto 4.7 x10*3/uL (2.0-8.3); Neutrophils Percent Auto 60.6 % (45-73); Platelet Count 193 X10*3/uL (160-400); Red Cell Distribution Width 11.8 % (11.0-16.0); White Blood Count 7.8 X10*3/uL (4.8-10.8)
[2021-03-13 06:26] LABS: Albumin Level 3.9 g/dL (3.5-5.0); Anion Gap 12 (12-20); Blood Urea Nitrogen 10 mg/dL (9-16); Calcium 8.8 mg/dL (8.4-10.2); Carbon Dioxide 24 mmol/L (22-29); Chloride 107 mmol/L (96-108); Creatinine Clr Calc Pharmacy 84.6; Estimated Glomerular Filt Rate > 60; Glucose Random 107 mg/dL (60-115); Magnesium 2.5 mg/dL (1.6-2.6); Phosphorus 2.3 mg/dL (2.7-4.5); Potassium 3.5 mmol/L (3.3-5.1); Sodium 139 mmol/L (135-145)
[2021-03-13] MEDS: Sodium,Potassium Phosphates POWD.PACK 2 PACKET PO (08:39)
[2021-03-13] MEDS: Potassium Chloride Packet 20 MEQ PACKET 40 MEQ PO (08:39)
[2021-03-13] MEDS: amLODIPine Besylate 10 MG TABLET PO (08:40)
[2021-03-13] MEDS: cloNIDine HCL 0.1 MG TABLET PO (08:41)
[2021-03-13] MEDS: Spironolactone 25 MG TABLET PO (08:41)
[2021-03-13] MEDS: Metoprolol Succinate ER 100 MG TAB.ER.24H 200 MG PO (09:45)
[2021-03-13] MEDS: lisinopriL 40 MG TABLET PO (09:46)
--- NOTE | 2021-03-13 10:10 | MHC.CM.PN ---
Addendum entered by Lauren Nunez 03/13/21 15:57: Educated pt on completing a HCP via gerontology aide: pt is declining at this time however, CM will reapproach prior to finalization of d/c plans. 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 Pt states his PCP is [facility] from the [facility] He admits poor compliance with medications citing some sort of umbilical infection limiting his ability to take medications (?) Unsure of this statement: Pt states his son and other family assists with transportation. He does not use adaptive equipment. D/C plan will ultimately depend on PT eval which he cannot participate in until his cerebral edema is improved. He will be a difficult placement d/t his non COVID vax status - pt states he is not interested in the vax following d/c. CM to follow for finalization of d/c needs: Tentative referral made to NA per pt choice interim.
--- NOTE | 2021-03-13 10:52 | MHC.STROKE ---
03/12/21 1648 EMS PRE-NOTIFIED PATIENT LETHARGIC, ARRIVED AT 1654. SEEN BY PROVIDER AND CT HEAD DONE, RIGHT PARIETAL-OCCIPITAL HEMORRHAGE, OLD LEFT CAUDATE LACUNAR STROKE. [place] [facility] [place]ED SWALLOW SCREEN. I MET WITH THE PATIENT WITH THE MORTGAGE UNDERWRITER. I CLARIFIED THE ONSET OF SYMPTOMS. HE WOKE YESTERDAY AT 0600 AND FELT FINE, SHORTLY AFTER THAT APPROXIMATELY 0630 HE FELT LIKE HIS VISION WAS NOT RIGHT. ONSET TO BE 0630. IT WASN'T UNTIL LATER IN THE DAY WHEN HIS CALLED 911 AFTER HE WAS MORE LETHARGIC. TODAY HIS NIHSS = 3 FOR LEFT HEMIANOPSIA AND NEGLECT ON THE LEFT. NO OTHER NEUROLOGY DEFICITS. HE HAS NOT BEEN COMPLIANT WITH ANY OF HIS MEDICATIONS. I DID PROVIDE STROKE EDUCATION AND REVIEWED HIS DIAGNOSIS AND WHY THIS IS SO IMPORTANT. I ALSO GAVE HIM A SCREEN SHOT OF THE ICH AND DESCRIBED THE LOCATION AND CORRELATING SYMPTOMS. I DID REVIEW THE CASE WITH DR GRIFFITH AND DR CARLSON. PER ICH PROTOCOL MAP 90-110, THIS WAS ALSO REVIEWED WITH THE NURSE. PT AND PT WILL BE ON HOLD UNTIL HIS BP IS STABLE. A REPEAT CT HEAD WILL BE DONE. I DID ASK DR CARLSON ABOUT OBTAINING A CTA H/N. I ALSO WOULD RECOMMEND AN ECHOCARDIOGRAM DUE TO LONG STANDING HTN (BUT THAT COULD BE DONE AN OUTPATIENT. HE HAS VTE PROPHYLAXIS WITH PNEUMATIC COMPRESSION DEVICES. ADDITIONAL STROKE ORDERS ADDED. ALL MEASURES MET. I WILL CONTINUE TO FOLLOW.
--- NOTE | 2021-03-13 14:15 | PM.CCPN ---
Subjective Subjective Date of Service: 03/13/21 Interval History: 65-year-old gentleman with underlying history of hypertension noncompliant with medication regimen, PREET, hyperlipidemia admitted on 03/12/2021 with hypertensive emergency and right parieto-occipital 1.5 cm intracerebral hemorrhage. Patient has been evaluated by neurology service and no acute procedural intervention was deemed necessary. He has been started on Cardene drip and transferred to the intensive care unit. No events overnight. Restarted on home blood pressure medication regimen and titrated off Cardene drip. Critical Care Time (minutes): 30 Physical Exam Vital Signs: Vital Signs: Last Vital Signs Temp 98.3 F 03/13/21 12:00 Pulse 69 03/13/21 14:00 Resp 25 H 03/13/21 14:00 BP 154/72 H 03/13/21 14:00 Pulse Ox 95 03/13/21 14:00 Oxygen Flow Rate 2 03/12/21 17:23 Body Mass Index 27.0 Const: General: no acute distress, alert and awake Orientation/consciousness: oriented to person, oriented to place and oriented to time Eyes: Sclerae: sclerae normal EOM: EOMs intact bilaterally Neck: Neck: Yes no lymphadenopathy, Yes trachea midline and Yes supple Resp: Effort & Inspection: normal respiratory effort and no respiratory distress Auscultation: clear to auscultation bilaterally Cardio: Rate: regular rate Rhythm: regular rhythm Heart sounds: no gallops, no murmurs and no rubs GI: Palpation (GI): Soft to palpation and Other GI palpation findings present ( Nontender) Auscultation: normal bowel sounds Neuro: General: oriented to person, oriented to place, oriented to time and other ( left hemianopsia, strength 5/5 bilateral) Extrem: General: Yes no pedal edema, No clubbing and No cyanosis Objective Data Labs CBC & Chem 7: 03/13/21 05:25 03/13/21 05:25 Labs: Laboratory Results - last 24 hr 03/12/21 03/12/21 03/12/21 18:53 18:53 18:53 WBC 10.6 RBC 5.48 Hgb 16.8 Hct 48.7 MCV 88.9 MCH 30.7 MCHC 34.5 RDW 11.9 Plt Count 205 MPV 9.5 Immature Gran % (Auto) 0.3 Neut % (Auto) 86.8 H Lymph % (Auto) 5.8 L [place] % (Auto) 5.7 Eos % (Auto) 0.8 Baso % (Auto) 0.6 Lymph # (Auto) 0.6 L [place] # (Auto) 0.6 Eos # (Auto) 0.1 Baso # (Auto) 0.1 Abs Immat Gran (auto) 0.03 Absolute Neuts (auto) 9.2 H Absolute Nucleated RBC 0.000 Nucleated RBC % (auto) 0.0 Sodium Potassium Chloride Carbon Dioxide Anion Gap BUN Creatinine Estim Creat Clear Calc Estimated GFR Random Glucose Lactic Acid Lactic Acid Fup @ 2Hr Calcium Phosphorus Magnesium Total Bilirubin Direct Bilirubin AST ALT Alkaline Phosphatase Troponin I High Sens 20.4 B-Natriuretic Peptide 86 Total Protein Albumin Lipase Urine Color Urine Appearance Urine pH Ur Specific [place] Urine Protein Urine Glucose (UA) Urine Ketones Urine Blood Urine Nitrite Ur Leukocyte Esterase Urine RBC Urine WBC Ur Squamous Epith Cells Amorphous Sediment Urine Bacteria COVID-19 (SUSI) Negative COVID-19 Clin Com See Note 03/12/21 03/12/21 03/12/21 18:53 18:53 19:30 WBC RBC Hgb Hct MCV MCH MCHC RDW Plt Count MPV Immature Gran % (Auto) Neut % (Auto) Lymph % (Auto) [place] % (Auto) Eos % (Auto) Baso % (Auto) Lymph # (Auto) [place] # (Auto) Eos # (Auto) Baso # (Auto) Abs Immat Gran (auto) Absolute Neuts (auto) Absolute Nucleated RBC Nucleated RBC % (auto) Sodium 136 Potassium 3.9 Chloride 104 Carbon Dioxide 23 Anion Gap 13 BUN 11 Creatinine 0.96 Estim Creat Clear Calc 83.6 Estimated GFR > 60 Random Glucose 132 H Lactic Acid 2.6 H* Lactic Acid Fup @ 2Hr Calcium 9.2 Phosphorus Magnesium Total Bilirubin 0.6 Direct Bilirubin 0.3 AST 39 H ALT 35 Alkaline Phosphatase 134 H Troponin I High Sens B-Natriuretic Peptide Total Protein 7.2 Albumin 4.1 Lipase 31 Urine Color YELLOW Urine Appearance CLEAR Urine pH 6.5 Ur Specific [place] 1.025 Urine Protein 3+ H Urine Glucose (UA) 100 H Urine Ketones NEG Urine Blood TRACE Urine Nitrite NEG Ur Leukocyte Esterase NEG Urine RBC 0-2 Urine WBC 1-4 Ur Squamous Epith Cells TRACE Amorphous Sediment TRACE Urine Bacteria NONE COVID-19 (SUSI) COVID-19 Clin Com 03/12/21 03/13/21 03/13/21 21:25 05:25 05:25 WBC 7.8 RBC 5.00 Hgb 15.7 Hct 44.2 MCV 88.4 MCH 31.4 MCHC 35.5 RDW 11.8 Plt Count 193 MPV 8.9 L Immature Gran % (Auto) 0.3 Neut % (Auto) 60.6 Lymph % (Auto) 25.0 [place] % (Auto) 9.2 Eos % (Auto) 4.1 H Baso % (Auto) 0.8 Lymph # (Auto) 2.0 [place] # (Auto) 0.7 Eos # (Auto) 0.3 Baso # (Auto) 0.1 Abs Immat Gran (auto) 0.02 Absolute Neuts (auto) 4.7 Absolute Nucleated RBC 0.000 Nucleated RBC % (auto) 0.0 Sodium 139 Potassium 3.5 Chloride 107 Carbon Dioxide 24 Anion Gap 12 BUN 10 Creatinine 0.87 Estim Creat Clear Calc 84.6 Estimated GFR > 60 Random Glucose 107 Lactic Acid Lactic Acid Fup @ 2Hr 1.9 Calcium 8.8 Phosphorus 2.3 L Magnesium 2.5 Total Bilirubin Direct Bilirubin AST ALT Alkaline Phosphatase Troponin I High Sens B-Natriuretic Peptide Total Protein Albumin 3.9 Lipase Urine Color Urine Appearance Urine pH Ur Specific [place] Urine Protein Urine Glucose (UA) Urine Ketones Urine Blood Urine Nitrite Ur Leukocyte Esterase Urine RBC Urine WBC Ur Squamous Epith Cells Amorphous Sediment Urine Bacteria COVID-19 (SUSI) COVID-19 Clin Com Progress Note: A&P Assessment and plan (1) Cerebral parenchymal hemorrhage: Status: Acute (2) Hypertensive emergency: Status: Acute (3) PREET (obstructive sleep apnea): Status: Acute Assessment and Plan: Assessment: 65-year-old gentleman with underlying hypertension poorly compliant with antihypertensive regimen admitted on 03/12/2021 with hypertensive emergency and ICH Plan: Neuro: Right ICH, likely hypertensive bleed. Left hemianopsia. Neurology service care appreciated. Repeat CT head is pending. Cardiac: hypertensive emergency resolved. Restarted on home antihypertensive regimen. Titrated off Cardene drip. Pulmonary: No acute issues. Renal: No acute issues. Endo: No acute issues. GI: No acute issues. ID: No acute issues Heme/Onc: No acute issues. Psych: No acute issues. Miscellaneous: No acute issues. Prophylaxis: Pneumatic compression Diet: cardiac Critical care time spent: 30 minutes Quality Stroke Does the patient have a stroke diagnosis?: Yes Reason for No Anti-thrombotic by Day Two: Contraindicated VTE Prior VTE?: No VTE Risk Level:: Medical - moderate - high VTE Device Contraindication: N/A - Device Ordered VTE Drug Contraindication: Treatment Not Indicated
--- NOTE | 2021-03-13 15:16 | PC.NURSE ---
Patient remains in ICU, Nicardipine drip running initially this AM. After PO BP meds taken, BP did not require Nicardipine support. Drip turned off at 10:25. Neuro assessment remarkable only for bilateral Left hemianopia. Follow up CT to be done this afternoon. Per neurology, if no further extension of hemorrhage, patient can be transferred to [facility]. Family at bedside this afternoon.
--- NOTE | 2021-03-13 16:03 | P.CNNE_ITS ---
History of Present Illness Data of Consult Service Date: 03/13/21 Primary Care Provider: Mini Lopez MD HPI Reason for consult: Altered mental status and a right parieto-occipital hemorrhage This a 65-year-old man with a history of for hypertension who has been noncompliant with his medication was brought in with theAltered mental status and his CAT scan showed a 1.5 cm her right parietal occipital intracerebral hemorrrhage with slight amount of eedema but no significant mass effect. His blood pressure was over 200 x 1 07. His CAT scan also shows extensive or large bilateral multiple lacunar infarcts from small vessel disease. He suffers from the hyperlipidemia, nonalcoholic steatohepatitis obstructtive sleep apnea. The patient denies any headache or weakness, and feels fine. Review of Systems Review of Systems: As per HPI Yes all other systems are reviewed and are negative PMFSH Past Medical History Medical History Hypertension Family History Family History Father History of esophageal cancer Mother No problems noted. Sister No problems noted. Brother No problems noted. Surgical History Surgical History Hx of colonoscopy Hx of hernia repair Social History Social History Household Members: Spouse and Children Alcohol intake: current Alcohol intake frequency: a few times a week Patient Tobacco Use Status: Never used Tobacco service: No Current occupational status: unemployed and retired Meds Allergies Allergy/AdvReac Type Severity Reaction Status Date / Time No Known Allergies Allergy Verified 10/29/20 14:22 [No Known Allergies*] Active Medications: Current Medications Acetaminophen (Acetaminophen 325 Mg Tablet) 650 mg PO Q6H PRN PRN Reason: Pain, Moderate (Pain Scale 4-6 Last Admin: 03/12/21 21:49 Dose: 650 mg Documented by: Amlodipine Besylate (Amlodipine Besylate 10 Mg Tablet) 10 mg PO DAILY [facility]; Protocol Last Admin: 03/13/21 08:40 Dose: 10 mg Documented by: Clonidine HCl (Clonidine Hcl 0.1 Mg Tablet) 0.1 mg PO DAILY [facility]; Protocol Last Admin: 03/13/21 08:41 Dose: 0.1 mg Documented by: Nicardipine HCl 25 mg/ Sodium (Chloride) 260 mls @ 0 mls/hr IVCONT .Q0M [facility]; Protocol Last Titration: 03/13/21 10:31 Dose: 0 mg/hr, 0 mls/hr Documented by: Lisinopril (Lisinopril 40 Mg Tablet) 40 mg PO DAILY [facility]; Protocol Last Admin: 03/13/21 09:46 Dose: 40 mg Documented by: Metoprolol Succinate (Metoprolol Succinate Er 100 Mg Tab.Er.24h) 200 mg PO DAILY [facility]; Protocol Last Admin: 03/13/21 09:45 Dose: 200 mg Documented by: Pharmacy Consult (Consult Rx Perform Med Rec) 1 each MISCELLANE ONCE PRN PRN Reason: Consult order Spironolactone (Spironolactone 25 Mg Tablet) 25 mg PO DAILY [facility]; Protocol Last Admin: 03/13/21 08:41 Dose: 25 mg Documented by: Home Medications Medication Instructions Recorded Confirmed Last Taken Type chlorthalidone 50 mg tablet 50 mg PO QAM 05/13/20 03/12/21 Unknown History ergocalciferol (vitamin D2) 1,250 1,250 mcg PO Q7D 05/13/20 03/12/21 Unknown History mcg (50,000 unit) capsule famotidine 40 mg tablet 40 mg PO BEDTIME 05/13/20 03/12/21 Unknown History fenofibrate 160 mg tablet 160 mg PO BEDTIME 05/13/20 03/12/21 Unknown History metoprolol succinate 200 mg 200 mg PO BEDTIME 05/13/20 03/12/21 Unknown History tablet,extended release 24 hr omeprazole 20 mg capsule,delayed 20 mg PO DAILY 05/13/20 03/12/21 Unknown History release pravastatin 40 mg tablet 40 mg PO DAILY 05/13/20 03/12/21 Unknown History prazosin 1 mg capsule 1 mg PO BEDTIME PRN 05/13/20 03/12/21 Unknown History Physical Exam Vital Signs: Vital Signs: Last Vital Signs Temp 98.3 F 03/13/21 12:00 Pulse 71 03/13/21 15:00 Resp 20 03/13/21 15:00 BP 153/76 H 03/13/21 15:00 Pulse Ox 97 03/13/21 15:00 Oxygen Flow Rate 2 03/12/21 17:23 Body Mass Index 27.0 Const: General: no acute distress, alert and awake Orientation/consciousness: oriented to person, oriented to place and oriented to time Eyes: Sclerae: sclerae normal EOM: EOMs intact bilaterally Neck: Neck: Yes no lymphadenopathy, Yes trachea midline and Yes supple Resp: Effort & Inspection: normal respiratory effort and no respiratory distress Auscultation: clear to auscultation bilaterally Cardio: Rate: regular rate Rhythm: regular rhythm Heart sounds: no gallops, no murmurs and no rubs GI: Palpation (GI): Soft to palpation and Other GI palpation findings present ( Nontender) Auscultation: normal bowel sounds Neuro: Other: Partial left upper quadrant take visual field defect. Otherwise nonfocal examination General: oriented to person, oriented to place, oriented to time and other ( left hemianopsia, strength 5/5 bilateral) Extrem: General: Yes no pedal edema, No clubbing and No cyanosis Results Labs CBC & Chem 7: 03/13/21 05:25 03/13/21 05:25 Labs: Short CBC 03/12/21 03/13/21 Range/Units 18:53 05:25 WBC 10.6 7.8 (4.8-10.8) X10*3/uL Hgb 16.8 15.7 (14.0-18.0) g/dl Hct 48.7 44.2 (42.0-52.0) % Plt Count 205 193 (160-400) X10*3/uL BMP 03/12/21 03/13/21 19:30 05:25 Sodium 136 139 Potassium 3.9 3.5 Chloride 104 107 Carbon Dioxide 23 24 BUN 11 10 Creatinine 0.96 0.87 Calcium 9.2 8.8 Liver Function 03/12/21 03/13/21 Range/Units 19:30 05:25 Total Bilirubin 0.6 (0.0-1.0) mg/dL Direct Bilirubin 0.3 (0.0-0.5) mg/dL AST 39 H (5-37) U/L ALT 35 (0-40) U/L Alkaline Phosphatase 134 H (39-117) U/L Albumin 4.1 3.9 (3.5-5.0) g/dL Urine 03/12/21 Range/Units 18:53 Urine Color YELLOW Urine Appearance CLEAR Urine pH 6.5 (5.0-8.0) Ur Specific [place] 1.025 (1.005-1.025) Urine Protein 3+ H (NEG-TRACE) MG/DL Urine Glucose (UA) 100 H (NEG) MG/DL Assessment and Plan (1) Cerebral parenchymal hemorrhage: Status: Acute Right parieto-occipital hemorrhage due to uncontrolled blood pressure. Extensive small vessel disease with multiple bilateral lacunar infarcts in the white matter and basal ganglia. Uncontrolled hypertension poor compliance with medications. Recommendation: Followup CT scan today. If there is no significant change in the size he can be transferred to the [facility]. His blood pressure should be controlled. It should be. Stressed to him that if he remains noncompliant with medications. He is going to end up with a massive stroke or even . The minor visual field defect should resolve within the next 6 weeks. (2) Hypertensive emergency: Status: Acute (3) PREET (obstructive sleep apnea): Status: Acute Assessment: 65-year-old gentleman with underlying hypertension poorly compliant with antihypertensive regimen admitted on 03/12/2021 with hypertensive emergency and ICH Plan: Neuro: Right ICH, likely hypertensive bleed. Left hemianopsia. Neurology service care appreciated. Repeat CT head is pending. Cardiac: hypertensive emergency resolved. Restarted on home antihypertensive regimen. Titrated off Cardene drip. Pulmonary: No acute issues. Renal: No acute issues. Endo: No acute issues. GI: No acute issues. ID: No acute issues Heme/Onc: No acute issues. Psych: No acute issues. Miscellaneous: No acute issues. Prophylaxis: Pneumatic compression Diet: cardiac Critical care time spent: 30 minutes Procedures Date of Service Date of Service: 03/13/21
[2021-03-14] VITALS (10 sets, daily range): BP systolic 157–161; BP diastolic 70–78; PULSE 62–67; RESP 14–18; TEMP 36.2–36.6; O2SAT 96–100; BMI 27.1
--- NOTE | 2021-03-14 05:31 | PC.NURSE ---
PT had a fall at 23:55. PRECISION MACHINE OPERATOR witnessed the pt bending over on the side of his bed in attempt to orange picker an item from the ground. Pt lost balance and fell backwards landing on R side buttocks. Incident report filed, Hospitalist and Air Quality Specialist notified. VMT camera placed in the room. Bed Alarm on.
[2021-03-14 07:03] LABS: Alanine Aminotransferase 32 U/L (0-40); Albumin Level 3.9 g/dL (3.5-5.0); Alkaline Phosphatase 113 U/L (39-117); Anion Gap 13 (12-20); Aspartate Amino Transferase 42 U/L (5-37); Bilirubin Total 0.9 mg/dL (0.0-1.0); Blood Urea Nitrogen 12 mg/dL (9-16); Calcium 9.3 mg/dL (8.4-10.2); Carbon Dioxide 24 mmol/L (22-29); Chloride 109 mmol/L (96-108); Creatinine Clr Calc Pharmacy 80.9; Estimated Glomerular Filt Rate > 60; Glucose Random 92 mg/dL (60-115); Potassium 4.5 mmol/L (3.3-5.1); Sodium 141 mmol/L (135-145); Total Protein 6.9 g/dL (6.5-8.0)
[2021-03-14] MEDS: amLODIPine Besylate 10 MG TABLET PO (08:04)
[2021-03-14] MEDS: lisinopriL 40 MG TABLET PO (08:04)
[2021-03-14] MEDS: Metoprolol Succinate ER 100 MG TAB.ER.24H 200 MG PO (08:05)
[2021-03-14] MEDS: Spironolactone 25 MG TABLET PO (08:05)
[2021-03-14] MEDS: cloNIDine HCL 0.1 MG TABLET PO ×2 (08:05→21:12)
--- NOTE | 2021-03-14 08:14 | HO.PM.IMPN ---
Subjective Subjective Date of Service: 03/14/21 <GEE Fritz - Last Filed: 03/14/21 08:43> 03/21/21 <Gilson Valdez MD - Last Filed: 03/21/21 16:36> Interval History: seen and examined this morning follow up for uncontrolled HTN, ICH witnessed fall overnight, no injuries sustained, no LOS denies sob, chest pain, dizziness, vision changes or headache this morning <GEE Fritz - Last Filed: 03/14/21 08:43> Review of Systems Review of Systems: Yes all other systems are reviewed and are negative <GEE Fritz - Last Filed: 03/14/21 08:43> Constitutional Constitutional: Denies chills and Denies fever(s) <GEE Fritz - Last Filed: 03/14/21 08:43> Cardiovascular Cardiovascular: Denies chest pain <GEE Fritz - Last Filed: 03/14/21 08:43> Respiratory Respiratory: Denies cough <GEE Fritz - Last Filed: 03/14/21 08:43> Gastrointestinal Gastrointestinal: Denies abdominal pain <GEE Fritz - Last Filed: 03/14/21 08:43> Physical Exam Vital Signs: Vital Signs: Last Vital Signs Temp 97.2 F 03/14/21 07:23 Pulse 62 03/14/21 08:05 Resp 18 03/14/21 07:23 BP 160/71 H 03/14/21 08:05 Pulse Ox 96 03/14/21 07:23 Oxygen Flow Rate 2 03/12/21 17:23 Body Mass Index 27.1 <GEE Fritz - Last Filed: 03/14/21 08:43> Const: General: cooperative, comfortable, no acute distress, alert and awake <GEE Fritz - Last Filed: 03/14/21 08:43> Nutritional Appearance: well nourished <GEE Fritz - Last Filed: 03/14/21 08:43> HENMT: Head: Yes normocephalic and Yes atraumatic <GEE Fritz - Last Filed: 03/14/21 08:43> Eyes: Sclerae: sclerae normal <GEE Fritz - Last Filed: 03/14/21 08:43> Resp: Effort & Inspection: normal respiratory effort and no respiratory distress <GEE Fritz - Last Filed: 03/14/21 08:43> Cardio: Rate: regular rate <GEE Fritz - Last Filed: 03/14/21 08:43> Rhythm: regular rhythm <GEE Fritz - Last Filed: 03/14/21 08:43> GI: Inspection: No distended <GEE Fritz - Last Filed: 03/14/21 08:43> Palpation (GI): Soft to palpation and nontender <GEE Fritz - Last Filed: 03/14/21 08:43> Neuro: General: moves all extremities <GEE Fritz - Last Filed: 03/14/21 08:43> Cranial nerves: Yes CN's II-XII intact bilaterally and Yes Bilaterally intact EOM present <GEE Fritz Last Filed: 03/14/21 08:43> Objective Data Active Medications Acetaminophen (Acetaminophen 325 Mg Tablet) 650 mg PO Q6H PRN PRN Reason: Pain, Moderate (Pain Scale 4-6 Last Admin: 03/12/21 21:49 Dose: 650 mg Documented by: ANNIE Amlodipine Besylate (Amlodipine Besylate 10 Mg Tablet) 10 mg PO DAILY [facility]; Protocol Last Admin: 03/14/21 08:04 Dose: 10 mg Documented by: BRYAN Clonidine HCl (Clonidine Hcl 0.1 Mg Tablet) 0.1 mg PO DAILY [facility]; Protocol Last Admin: 03/14/21 08:05 Dose: 0.1 mg Documented by: BRYAN Lisinopril (Lisinopril 40 Mg Tablet) 40 mg PO DAILY [facility]; Protocol Last Admin: 03/14/21 08:04 Dose: 40 mg Documented by: BRYAN Metoprolol Succinate (Metoprolol Succinate Er 100 Mg Tab.Er.24h) 200 mg PO DAILY [facility]; Protocol Last Admin: 03/14/21 08:05 Dose: 200 mg Documented by: BRYAN Pharmacy Consult (Consult Rx Perform Med Rec) 1 each MISCELLANE ONCE PRN PRN Reason: Consult order Spironolactone (Spironolactone 25 Mg Tablet) 25 mg PO DAILY [facility]; Protocol Last Admin: 03/14/21 08:05 Dose: 25 mg Documented by: BRYAN <GEE Fritz - Last Filed: 03/14/21 08:43> Labs CBC & Chem 7: : 03/13/21 05:25 03/15/21 06:06 <EGE Fritz - Last Filed: 03/14/21 08:43> Labs: Laboratory Results - last 24 hr 03/14/21 05:45 Anion Gap 13 Estim Creat Clear Calc 80.9 Estimated GFR > 60 Random Glucose 92 Calcium 9.3 Total Bilirubin 0.9 AST 42 H ALT 32 Alkaline Phosphatase 113 Total Protein 6.9 Albumin 3.9 <GEE Fritz - Last Filed: 03/14/21 08:43> Microbiology Microbiology Results: Microbiology 03/12/21 22:47 Blood Culture - Preliminary Blood - Venous No growth after 24 hours. 03/12/21 22:47 Blood Culture - Preliminary Blood - Venous No growth after 24 hours. 03/12/21 18:55 Blood Culture - Preliminary Blood - Venous No growth after 24 hours. 03/12/21 18:53 Blood Culture - Preliminary Blood - Venous No growth after 24 hours. <GEE Fritz - Last Filed: 03/14/21 08:43> Assessment and Plan (1) Intracranial bleed: Status: Acute <GEE Fritz - Last Filed: 03/14/21 08:43> (2) Hypertensive emergency: Status: Acute <GEE Fritz - Last Filed: 03/14/21 08:43> Assessment and Plan: This is a 65 year old male with a history of poorly controlled HTN due to noncompliance, PREET, HLD, DIAZ who was brought to the ED on 03/12 with confusion found to have hypertensive emergency and ICH admitted to the ICU for cardene drip, downgraded to the medical floor on the evening of 03/13. ICH Initial brain CT from 03/12 showed focal intraparenchymal hemorrhage in the right parietal-occipital lobe with small volume of surrounding edema without significant mass effect Repeat brain CT on 03/13 shows no change persistent Left hemianopsia Seen by neurology, recommend blood pressure control PT eval pending HTN admitted for hypertensive emergency, initially BP as high as 236/110 s/p cardene drip in ICU Has been resumed on home dose of norvasc, lisinopril, aldactone and lower dose of clonidine; metoprolol was added Hydralazine on hold BP goal 120-160 dvt ppx - SCDs due to ICH attending: dr. valdez <GEE Fritz - Last Filed: 03/14/21 08:43> This is a 65 year old male with a history of poorly controlled HTN due to noncompliance, PREET, HLD, DIAZ who was brought to the ED on 03/12 with confusion found to have hypertensive emergency and ICH admitted to the ICU for cardene drip, downgraded to the medical floor on the evening of 03/13. ICH Initial brain CT from 03/12 showed focal intraparenchymal hemorrhage in the right parietal-occipital lobe with small volume of surrounding edema without significant mass effect Repeat brain CT on 03/13 shows no change persistent Left hemianopsia Seen by neurology, recommend blood pressure control PT eval pending HTN admitted for hypertensive emergency, initially BP as high as 236/110 s/p cardene drip in ICU Has been resumed on home dose of norvasc, lisinopril, aldactone and lower dose of clonidine; metoprolol was added Hydralazine on hold BP goal 120-160 dvt ppx - SCDs due to ICH attending: dr. valdez I saw and examined patient and discussed findings with midlevel provider and i agree with the above <Gilson Valdez MD - Last Filed: 03/21/21 16:36> Quality Stroke Does the patient have a stroke diagnosis?: Yes <GEE Fritz - Last Filed: 03/14/21 08:43> Reason for No Anti-thrombotic by Day Two: Contraindicated <GEE Fritz - Last Filed: 03/14/21 08:43> VTE Prior VTE?: No <GEE Fritz - Last Filed: 03/14/21 08:43> VTE Risk Level:: Medical - moderate - high <GEE Fritz - Last Filed: 03/14/21 08:43> VTE Device Contraindication: N/A - Device Ordered <GEE Fritz - Last Filed: 03/14/21 08:43> VTE Drug Contraindication: Treatment Not Indicated <GEE Fritz - Last Filed: 03/14/21 08:43>
[2021-03-14] MEDS: hydrALAZINE HCl 25 MG TABLET PO ×2 (15:02→21:11)
[2021-03-15] VITALS: BP 145/66; PULSE 60; RESP 16; TEMP 36.3; O2SAT 99
[2021-03-15 04:00] VITALS: BP 151/73; PULSE 58; RESP 17; TEMP 36.6; O2SAT 98
[2021-03-15 06:00] VITALS: BMI 27.1
[2021-03-15 07:04] LABS: Anion Gap 11 (12-20); Blood Urea Nitrogen 14 mg/dL (9-16); Calcium 9.4 mg/dL (8.4-10.2); Carbon Dioxide 25 mmol/L (22-29); Chloride 107 mmol/L (96-108); Creatinine Clr Calc Pharmacy 81.8; Estimated Glomerular Filt Rate > 60; Glucose Random 101 mg/dL (60-115); Potassium 3.9 mmol/L (3.3-5.1); Sodium 139 mmol/L (135-145)
[2021-03-15 07:33] VITALS: BP 164/72; PULSE 60; RESP 18; TEMP 36.5; O2SAT 98
[2021-03-15 09:27] VITALS: BP 164/72; PULSE 60
[2021-03-15] MEDS: Metoprolol Succinate ER 100 MG TAB.ER.24H 200 MG PO (09:27)
[2021-03-15 09:28] VITALS: BP 164/72; PULSE 60
[2021-03-15] MEDS: lisinopriL 40 MG TABLET PO (09:28)
[2021-03-15] MEDS: Spironolactone 25 MG TABLET PO (09:28)
[2021-03-15] MEDS: hydrALAZINE HCl 25 MG TABLET PO (09:28)
[2021-03-15] MEDS: amLODIPine Besylate 10 MG TABLET PO (09:28)
[2021-03-15] MEDS: cloNIDine HCL 0.1 MG TABLET PO (09:28)
--- NOTE | 2021-03-15 09:41 | P.DS_ITS ---
DS: Providers Provider Date of Service: 03/15/21 Date of admission: 03/12/21 20:59 Date of discharge: 03/15/21 Primary care physician: Mini Lopez MD Consults: 03/13/21 09:40 Consult to Neurology Routine Consulting Provider: [facility] Reason for consultation: Intracerebral bleed 03/13/21 17:59 Consult to Hospitalist Routine Consulting Provider: Daisy Rodriguez Reason For Exam: icu downgrade Attending physician on discharge: Gardenia Mckee Discharging clinician: Daisy Rodriguez DS: Diagnosis Discharge Diagnosis (1) Intracranial bleed: Status: Acute (2) Hypertensive emergency: Status: Acute DS: Summary Hospital Course Hospital Course: This is a 65-year-old male with history of hypertension who was brought to the emergency department due to encephalopathy. He was noted to have uncontrolled hypertension with blood pressure in the 230s initially. Workup was significant for a 1.5 cm intraparenchymal hemorrhage in the right parietal occipital lobe with small volume of surrounding edema without significant mass effect. He was not admitted to the intensive care unit for close monitoring and frequent neuro checks. He was started on a Cardene drip for control of blood pressure with goal blood pressure of under 160. He was gradually transitioned over to some of his home blood pressure medication. His blood pressure has remained stable around 160 or under. He has a history of noncompliance with his blood pressure medication and the importance of taking his medication as prescribed was discussed in detail. He was educated on avoiding blood thinners and medications such as aspirin, ibuprofen etc.. He is encouraged to return to the emergency department if he develops any new symptoms, dizziness, syncope, vision changes ex cetera. He should call to schedule a follow-up appointment with his PCP. He was evaluated by Physical therapy and does not require home services. Time Spent with Patient Time attestation: Total time spent providing and/or coordinating discharge services: Discharge coordination time: Greater than 30 minutes Quality: Stroke Does the patient have a stroke diagnosis?: Yes Reason for No Anti-thrombotic at DC: Contraindicated Reason for No Anticoagulant at DC: Contraindicated Reason Not Initiating IV-Tpa: Contraindicated Reason for No Anti-thrombotic by Day Two: Contraindicated Reason for No Statin at DC: Not indicated Physical Exam Vital Signs: Vital Signs: Last Vital Signs Temp 97.7 F 03/15/21 07:33 Pulse 60 03/15/21 09:28 Resp 18 03/15/21 07:33 BP 164/72 H 03/15/21 09:28 Pulse Ox 98 03/15/21 07:33 Oxygen Flow Rate 2 03/12/21 17:23 Body Mass Index 27.1 Const: Nutritional Appearance: well nourished HENMT: Head: Yes normocephalic and Yes atraumatic Eyes: Sclerae: sclerae normal Resp: Effort & Inspection: normal respiratory effort and no respiratory distress Cardio: Rate: regular rate Rhythm: regular rhythm GI: Palpation (GI): Soft to palpation and nontender Neuro: Other: left peripheral vision deficit Cranial nerves: Yes CN's II-XII intact bilaterally and Yes Bilaterally intact EOM present DS: Data Data Completed and Pending Labs on day of discharge: Laboratory Results - last 24 hr 03/15/21 06:06 Sodium 139 Potassium 3.9 Chloride 107 Carbon Dioxide 25 Anion Gap 11 L BUN 14 Creatinine 0.90 Estim Creat Clear Calc 81.8 Estimated GFR > 60 Random Glucose 101 Calcium 9.4 Preliminary micro results at discharge 03/12/21 22:47 Blood Culture - Preliminary Blood - Venous No growth after 48 hours. 03/12/21 22:47 Blood Culture - Preliminary Blood - Venous No growth after 48 hours. 03/12/21 18:53 Blood Culture - Preliminary Blood - Venous No growth after 48 hours. 03/12/21 18:55 Blood Culture - Preliminary Blood - Venous Prelim: GPC Gram Stain only Discharge Plan Discharge Patient Disposition: Home, Self-Care Discharge Diagnosis: intracranial hemorrhage hypertensive emergency Referrals: Mini Gay MD [Primary Care Provider] - 1 Week Discharge Medications: Continued spironolactone 25 mg tablet 25 mg PO DAILY Qty: 30 RF: 1 hydralazine 25 mg tablet 25 mg PO TID Qty: 90 RF: 1 lisinopril 40 mg tablet 40 mg PO DAILY Qty: 30 RF: 1 amlodipine 10 mg tablet 10 mg PO DAILY Qty: 30 RF: 1 Changed clonidine HCl 0.2 mg tablet 0.1 mg PO BID Qty: 60 RF: 1 Discontinued chlorthalidone 50 mg tablet 50 mg PO QAM RF: 0 Discharge Orders: Discharge Order (Routine); Ordered 03/15/21 Ordered By: Daisy L Jennifer Activity on Discharge: As tolerated Stand Alone Forms: Patient Portal Discharge page Care Plan Goals: see below Health Concerns: Intracranial hemorrhage Uncontrolled high blood pressure Plan of Treatment: Your blood pressure medications have been adjusted. Please take as prescribed. Do not take any medication like aspirin, ibuprofen, motrin or any blood thinners Please call to schedule a follow up appointment with your PCP for close blood pressure monitoring. If you develop any new symptoms, any dizziness, feeling lightheaded, visual changes please return to the ER Assessment: see discharge summary
--- NOTE | 2021-03-15 09:59 | MHC.CM.PN ---
PT DISCHARGING HOME W/RESUMP OF TALENT DIRECTOR THROUGH [facility] HENRI[facility] MET W/PT AND HE WILL CALL FAMILY FOR RIDE HOME.
== END 2021-03-15 11:20 | disposition home or self-care (01) | DRG 304 ==
LOC: HO.ED 18:19 → HO.EDOVER 21:12 → HO.ICU 22:43 → HO.S3 03-13 19:04
PROVIDERS: Internal Medicine Pulmonary Disease; Admitting Provider Registered Nurse Community Health; Emergency Provider Emergency Medicine; PCP Internal Medicine; Visit Provider Physician Assistant Medical
DX: I16.1 Hypertensive emergency (principal); I61.6 Nontraumatic intracerebral hemorrhage, multiple localized; H53.462 Homonymous bilateral field defects, left side; I10 Essential (primary) hypertension; Z91.14 Patient's other noncompliance with medication regimen; Z20.822 Contact with and (suspected) exposure to COVID-19; Z79.899 Other long term (current) drug therapy
CPT/HCPCS: 36415; 70450; 71045; 80048; 80053; 80076; 81001; 81003; 82040; 83605; 83690; 83735; 83880; 84100; 84484; 85025; 87040; 87147; 87205; 87635; 93005; 96361; 96374; 97162; 99285; 99291

== ENCOUNTER 2021-03-25 10:26 | Emergency (ER) | payer MEDICARE, MEDICAID, SELFPAY ==
--- NOTE | ~2021-03-25 | XR_ITS ---
EXAMINATION: XR CHEST CLINICAL INFORMATION: Dizziness COMPARISON: Chest radiographs 03/12/2021, 07/02/2019 TECHNIQUE: Portable upright AP view of the chest was obtained. FINDINGS: The lungs are clear. There is no vascular congestion or infiltrate or effusion. The cardiac and hilar and mediastinal contours and bony structures are unremarkable. XR/XR chest 1V IMPRESSION: Unremarkable examination.
--- NOTE | ~2021-03-25 | CT_ITS ---
EXAMINATION: CT HEAD WITHOUT CONTRAST CLINICAL INFORMATION: Recent intraparenchymal bleed. Dizziness. COMPARISON: CT brain 03/13/2021 TECHNIQUE: Contiguous axial imaging was performed from the skull base to vertex without intravenous administration of contrast. This CT examination was performed using dose optimization techniques as appropriate, variously including the following: *Automated exposure control *Adjustment of mA and/or kV according to patient size (this includes techniques or standardized protocols for targeted exams where dose is matched to indication/reason for exam; i.e. extremities or head) *Use of iterative reconstruction technique DLP: 661 mGy-cm FINDINGS: There is no evidence of acute intracranial hemorrhage or territorial infarction. There is moderate hypodensity in the right posterior parietal lobe/watershed area, sequelae of recent past bleed. No abnormal mass effect or midline shift is seen. [place] to white matter differentiation is well preserved. No extra-axial fluid collections are identified. The lateral ventricles are symmetrical in size and configuration without enlargement. There is mild periventricular hypodensity in both cerebral hemispheres especially in frontal lobes. There is lacunar infarction in left basal ganglia and left thalamus. The osseous structures and soft tissues are normal. The mastoid air cells and visualized portions of the paranasal sinuses are well aerated. CT/CT head/brain wo con IMPRESSION: 1. No acute intracranial process seen. 2. Right posterior parietal lobe hypodensity sequelae of recent past hemorrhage. 3. Small lacunar infarction left thalamus and left basal ganglia. There is mild periventricular hypodensity in both cerebral hemispheres without mass effect.
[2021-03-25 10:54] VITALS: BP 160/84; BP 194/88; PULSE 82; PULSE 85; RESP 16; TEMP 37.2; O2SAT 98; BMI 29.0
--- NOTE | 2021-03-25 10:55 | ECG_ITS ---
Test Reason : DIZZY Blood Pressure : / mmHG Vent. Rate : 073 BPM Atrial Rate : 073 BPM P-R Int : 178 ms QRS Dur : 086 ms QT Int : 378 ms P-R-T Axes : 041 022 -07 degrees QTc Int : 416 ms Normal sinus rhythm Nonspecific ST and T wave abnormality - inferior and lateral leads Abnormal ECG When compared with ECG of 12-MAR-2021 18:37, ST-T changes more prominent Referred By: Sandi Duarte Electronically Signed By:VIVIANE SHOEMAKER
[2021-03-25 11:41] LABS: MANUAL DIFF FLAG NO
[2021-03-25 11:43] LABS: Basophils Absolute Auto 0.1 X10*3/uL (0.0-0.2); Basophils Percent Auto 0.8 % (0-2); Eosinophils Absolute Auto 0.6 X10*3/uL (0.0-0.4); Eosinophils Percent Auto 5.4 % (0-4); Hematocrit 47.9 % (42.0-52.0); Hemoglobin 15.9 g/dl (14.0-18.0); Imm Gran Abs Auto 0.03 X10*3/uL (0.00-0.03); Imm Gran Pct Auto 0.3 % (0.0-0.4); Lymphocytes Absolute Auto 1.3 X10*3/uL (1.2-4.9); Lymphocytes Percent Auto 12.6 % (20-40); Mean Corpuscular HGB Conc 33.2 g/dl (31.0-36.0); Mean Corpuscular Hemoglobin 31.1 pg (27.0-33.0); Mean Corpuscular Volume 93.6 fL (80.0-98.0); Mean Platelet Volume 9.4 fL (9.4-12.4); Monocytes Absolute Auto 0.7 X10*3/uL (0.1-1.2); Neutrophils Absolute Auto 7.6 x10*3/uL (2.0-8.3); Neutrophils Percent Auto 73.9 % (45-73); Platelet Count 277 X10*3/uL (160-400); Red Blood Count 5.12 X10*6/uL (4.60-5.80); Red Cell Distribution Width 11.5 % (11.0-16.0); White Blood Count 10.3 X10*3/uL (4.8-10.8)
[2021-03-25 12:01] LABS: COVID-19 Test Negative (Negative)
[2021-03-25 12:01] LABS: Ethanol < 10 mg/dL
[2021-03-25 12:04] LABS: B Type Natriuretic Peptide 93 pg/mL (<100)
--- NOTE | 2021-03-25 12:09 | ED.DIZZY ---
HPI - Dizziness General Chief Complaint: Dizziness Stated Complaint: DIZZINESS Time Seen by Provider: 03/25/21 10:35 Source: patient, family and EMS Mode of arrival: EMS History of Present Illness HPI Narrative: 65-year-old male with past medical history hyperlipidemia, HTN, [place], PREET, recently admitted to our facility for intraparenchymal hemorrhage secondary to uncontrolled hypertension, presenting to the ED complaining of lightheadedness/dizziness s/p taking antihypertensives this morning. Reports associated tingling in right lower extremity. Admits to mild symptomatic improvement at present. Denies headache, vision change/loss, CP/SOB, abdominal pain, nausea/vomiting, weakness MD elicited complaint: dizziness and lightheadedness Onset (ago): hour(s) Timing: sudden onset History of similar symptoms: No Related Data Home Medications Medication Instructions Recorded Confirmed ergocalciferol (vitamin D2) 1,250 1,250 mcg PO Q7D 05/13/20 03/12/21 mcg (50,000 unit) capsule famotidine 40 mg tablet 40 mg PO BEDTIME 05/13/20 03/12/21 omeprazole 20 mg capsule,delayed 20 mg PO DAILY 05/13/20 03/12/21 release pravastatin 40 mg tablet 40 mg PO DAILY 05/13/20 03/12/21 prazosin 1 mg capsule 1 mg PO BEDTIME PRN 05/13/20 03/12/21 Previous Rx's Medication Instructions Recorded amlodipine 10 mg tablet 10 mg PO DAILY #30 tab 03/15/21 clonidine HCl 0.2 mg tablet 0.1 mg PO BID 30 Days #30 tab 03/15/21 fenofibrate 160 mg tablet 160 mg PO BEDTIME 30 Days #30 tab 03/15/21 hydralazine 25 mg tablet 25 mg PO TID #90 tab 03/15/21 lisinopril 40 mg tablet 40 mg PO DAILY #30 tab 03/15/21 metoprolol succinate 200 mg 200 mg PO BEDTIME 30 Days #30 tab 03/15/21 tablet,extended release 24 hr spironolactone 25 mg tablet 25 mg PO DAILY #30 tab 03/15/21 cefuroxime axetil 250 mg tablet 250 mg PO BID 7 Days #14 tab 03/25/21 Allergies Allergy/AdvReac Type Severity Reaction Status Date / Time No Known Allergies Allergy Verified 10/29/20 14:22 [No Known Allergies*] Review of Systems Review of Systems: Constitutional: No Fever, No Chills, No Fatigue, No Malaise ENT/Mouth: No Ear Pain, No sore throat, No Rhinorrhea, No Swallowing Difficulty Eyes: No Eye Pain, No Swelling, No Redness, No Vision Changes Cardiovascular: No Chest Pain, No SOB, No Edema, No Palpitations Respiratory: No Cough, No Dyspnea Gastrointestinal: No Nausea, No Vomiting, No Diarrhea, No Constipation, No Abdominal pain Genitourinary: No Dysuria, No Urinary Frequency, No Hematuria, No Urinary Incontinence, No Urgency, No Flank Pain, No Urinary Flow Changes, No Hesitancy Musculoskeletal: No joint pain, No Myalgias, No Joint Swelling Skin: No Skin Lesions, No rash Neuro: No Weakness, No Numbness, No Paresthesias, No Loss of Consciousness, + lightheadedness/ Dizziness, No Headache Yes all other systems are reviewed and are negative Neurologic: Denies Abnormal speech present [facility] Past Medical History Attestation statement: The following information was validated with the patient. Medical History High cholesterol Hypertension [place] (nonalcoholic steatohepatitis) PREET (obstructive sleep apnea) Surgical History Hx of colonoscopy Hx of hernia repair Family History Family History Father History of esophageal cancer Mother No problems noted. Sister No problems noted. Brother No problems noted. Social History Social History Household Members: Spouse and Children Alcohol intake: current Alcohol intake frequency: a few times a week Patient Tobacco Use Status: Never used Tobacco Advance Directives: No Advance Directives Information Provided: No service: No Current occupational status: unemployed and retired Physical Exam Vital Signs: Vital Signs: Last Vital Signs Temp 98.4 F 03/25/21 12:40 Pulse 75 03/25/21 15:37 Resp 15 03/25/21 15:09 BP 170/71 H 03/25/21 15:37 Pulse Ox 99 03/25/21 15:09 BMI result Body Mass Index 29.0 Const: General: cooperative, healthy appearing, no acute distress, well developed, alert and awake Orientation/consciousness: patient oriented x3 Limitations: no limitations HENMT: Head: Yes normal to inspection Ears: hearing grossly normal bilaterally General nose exam: Normal external nose present Face and sinus: Yes normal facial exam Mouth: Normal oral and palatal mucosa present Throat: Yes posterior oropharynx normal, Yes tonsils normal, Yes uvula midline and No uvular edema Eyes: General: appearance normal, both eyes and all related structures EOM: EOMs intact bilaterally Neck: Neck: Yes normal visual inspection and Yes no meningeal signs Resp: Effort & Inspection: normal respiratory effort Auscultation: clear to auscultation bilaterally, no rales, no rhonchi and no wheezes Cardio: Rate: regular rate Heart sounds: S1 normal heart sound present and S2 normal heart sound present GI: Inspection: Yes normal to inspection Palpation (GI): Soft to palpation, nontender, no guarding and not rigid : General: Yes no CVA tenderness Back/Spine/Pelvis: Back: no CVA tenderness Skin: Rashes: no rashes Wounds: no wounds Neuro: General: patient oriented x3, tone normal, moves all extremities, no meningeal signs, no focal motor deficits and CN's II-XI intact bilaterally Cranial nerves: Yes CN's II-XII intact bilaterally, Yes Bilaterally intact EOM present and Yes Nystagmus not present Cognition (Neuro): normal cognition Speech: No Abnormal speech present Gait exam (Neuro): Normal gait present Motor exam (neuro): 5/5 motor strength present throughout, Pronator motor function not present and no tremor noted Coordination: [id number] test normal Romberg Test: Negative Extrem: General: Yes normal to inspection, Yes no pedal edema and Yes no calf tenderness Course Course Course Narrative: XR chest 1V IMPRESSION: Unremarkable examination. ? -1325--no leukocytosis. H&H stable, initial troponin 13 > will obtain 3 hour repeat -UA infected > patient given dose of IV ceftriaxone in the ED 1439--CT head/brain wo con IMPRESSION: 1. No acute intracranial process seen. ? 2. Right posterior parietal lobe hypodensity sequelae of recent past hemorrhage. ? 3. Small lacunar infarction left thalamus and left basal ganglia. There is mild periventricular hypodensity in both cerebral hemispheres without mass effect. >> verified with Dr. Donohue radiology the head CT looks unchanged from prior -1530--repeat troponin 24.9, greater than 50% rise > case discussed with Cardiology Dr. Moe who reviewed which is not significant EKG. Patient never reported chest pain Orthostatic vital signs negative. Discussed results including worrisome signs and symptoms and strict return precautions with patient and at bedside. Discussed need to follow-up with PCP/Cardiology, they verbalized understanding feel safe for discharge home at this time MDM - Dizziness MDM Narrative Medical decision making narrative: 65-year-old male with past medical history hyperlipidemia, HTN, [place], PREET, recently admitted to our facility for intraparenchymal hemorrhage secondary to uncontrolled hypertension, presenting to the ED complaining of lightheadedness/dizziness s/p taking antihypertensives this morning. On exam vital signs stable, NAD/nontoxic, no focal neuro deficits prior and concern for ACS vs ?CVA or ICH vs dehydration or medication reaction. Patient is not tPA candidate due to recent ICH, and stroke scale of 0. R/o out metabolic infectious etiologies. Plan: EKG, labs, CXR, head CT, UA, orthostatics, re-evaluate Medical Records Attestation: I reviewed the patient's medical records. Lab Data Attestation: I reviewed the patient's lab results. Result diagrams: 03/25/21 11:35 03/25/21 11:35 Labs: Lab Results 03/25/21 03/25/21 03/25/21 Range/Units 11:35 11:35 11:35 WBC 10.3 (4.8-10.8) X10*3/uL RBC 5.12 (4.60-5.80) X10*6/uL Hgb 15.9 (14.0-18.0) g/dl Hct 47.9 (42.0-52.0) % MCV 93.6 (80.0-98.0) fL MCH 31.1 (27.0-33.0) pg MCHC 33.2 (31.0-36.0) g/dl RDW 11.5 (11.0-16.0) % Plt Count 277 D (160-400) X10*3/uL MPV 9.4 (9.4-12.4) fL Immature Gran % (Auto) 0.3 (0.0-0.4) % Neut % (Auto) 73.9 H (45-73) % Lymph % (Auto) 12.6 L (20-40) % Coal % (Auto) 7.0 (2-11) % Eos % (Auto) 5.4 H (0-4) % Baso % (Auto) 0.8 (0-2) % Lymph # (Auto) 1.3 (1.2-4.9) X10*3/uL Coal # (Auto) 0.7 (0.1-1.2) X10*3/uL Eos # (Auto) 0.6 H (0.0-0.4) X10*3/uL Baso # (Auto) 0.1 (0.0-0.2) X10*3/uL Abs Immat Gran (auto) 0.03 (0.00-0.03) X10*3/uL Absolute Neuts (auto) 7.6 (2.0-8.3) x10*3/uL Absolute Nucleated RBC 0.000 (0.0-0.012) X10*3/uL Nucleated RBC % (auto) 0.0 (0.0-0.2) /100WBC Sodium 142 (135-145) mmol/L Potassium 4.4 (3.3-5.1) mmol/L Chloride 107 (96-108) mmol/L Carbon Dioxide 26 (22-29) mmol/L Anion Gap 13 (12-20) BUN 19 H (9-16) mg/dL Creatinine 1.25 (0.5-1.4) mg/dL Estim Creat Clear Calc 51.3 Estimated GFR 58 Random Glucose 107 (60-115) mg/dL Calcium 12.0 H D (8.4-10.2) mg/dL Magnesium 2.0 (1.6-2.6) mg/dL Total Bilirubin 0.5 (0.0-1.0) mg/dL Direct Bilirubin 0.2 (0.0-0.5) mg/dL AST 34 (5-37) U/L ALT 34 (0-40) U/L Alkaline Phosphatase 97 (39-117) U/L Troponin I High Sens 13.0 (<3.5-35.0) ng/L B-Natriuretic Peptide 93 (<100) pg/mL Total Protein 7.6 (6.5-8.0) g/dL Albumin 4.4 (3.5-5.0) g/dL Urine Color Urine Appearance Urine pH (5.0-8.0) Ur Specific [place] (1.005-1.025) Urine Protein (NEG-TRACE) MG/DL Urine Glucose (UA) (NEG) MG/DL Urine Ketones (NEG) MG/DL Urine Blood (NEG) Urine Nitrite (NEG) Ur Leukocyte Esterase (NEG) Urine RBC (0) /HPF Urine WBC (0-4) /HPF Ur Squamous Epith Cells /LPF Urine Bacteria /LPF Urine Opiates Screen (Not Detect) Urine Fentanyl Screen (Not Detect) Ur Barbiturates Screen (Not Detect) Ur Phencyclidine Scrn (Not Detect) Ur Amphetamines Screen (Not Detect) U Benzodiazepines Scrn (Not Detect) Urine Cocaine Screen (Not Detect) U Marijuana (THC) Screen (Not Detect) Ethyl Alcohol mg/dL COVID-19 (SUSI) (Negative) COVID-19 Clin Com 03/25/21 03/25/21 03/25/21 Range/Units 11:35 11:36 12:06 WBC (4.8-10.8) X10*3/uL RBC (4.60-5.80) X10*6/uL Hgb (14.0-18.0) g/dl Hct (42.0-52.0) % MCV (80.0-98.0) fL MCH (27.0-33.0) pg MCHC (31.0-36.0) g/dl RDW (11.0-16.0) % Plt Count (160-400) X10*3/uL MPV (9.4-12.4) fL Immature Gran % (Auto) (0.0-0.4) % Neut % (Auto) (45-73) % Lymph % (Auto) (20-40) % Coal % (Auto) (2-11) % Eos % (Auto) (0-4) % Baso % (Auto) (0-2) % Lymph # (Auto) (1.2-4.9) X10*3/uL Coal # (Auto) (0.1-1.2) X10*3/uL Eos # (Auto) (0.0-0.4) X10*3/uL Baso # (Auto) (0.0-0.2) X10*3/uL Abs Immat Gran (auto) (0.00-0.03) X10*3/uL Absolute Neuts (auto) (2.0-8.3) x10*3/uL Absolute Nucleated RBC (0.0-0.012) X10*3/uL Nucleated RBC % (auto) (0.0-0.2) /100WBC Sodium (135-145) mmol/L Potassium (3.3-5.1) mmol/L Chloride (96-108) mmol/L Carbon Dioxide (22-29) mmol/L Anion Gap (12-20) BUN (9-16) mg/dL Creatinine (0.5-1.4) mg/dL Estim Creat Clear Calc Estimated GFR Random Glucose (60-115) mg/dL Calcium (8.4-10.2) mg/dL Magnesium (1.6-2.6) mg/dL Total Bilirubin (0.0-1.0) mg/dL Direct Bilirubin (0.0-0.5) mg/dL AST (5-37) U/L ALT (0-40) U/L Alkaline Phosphatase (39-117) U/L Troponin I High Sens (<3.5-35.0) ng/L B-Natriuretic Peptide (<100) pg/mL Total Protein (6.5-8.0) g/dL Albumin (3.5-5.0) g/dL Urine Color YELLOW Urine Appearance HAZY Urine pH 6.0 (5.0-8.0) Ur Specific [place] 1.010 (1.005-1.025) Urine Protein NEG (NEG-TRACE) MG/DL Urine Glucose (UA) NEG (NEG) MG/DL Urine Ketones NEG (NEG) MG/DL Urine Blood NEG (NEG) Urine Nitrite NEG (NEG) Ur Leukocyte Esterase 2+ H (NEG) Urine RBC 0 (0) /HPF Urine WBC 30-49 H (0-4) /HPF Ur Squamous Epith Cells TRACE /LPF Urine Bacteria TRACE /LPF Urine Opiates Screen (Not Detect) Urine Fentanyl Screen (Not Detect) Ur Barbiturates Screen (Not Detect) Ur Phencyclidine Scrn (Not Detect) Ur Amphetamines Screen (Not Detect) U Benzodiazepines Scrn (Not Detect) Urine Cocaine Screen (Not Detect) U Marijuana (THC) Screen (Not Detect) Ethyl Alcohol < 10 mg/dL COVID-19 (SUSI) Negative (Negative) COVID-19 Clin Com See Note 03/25/21 03/25/21 Range/Units 12:06 14:38 WBC (4.8-10.8) X10*3/uL RBC (4.60-5.80) X10*6/uL Hgb (14.0-18.0) g/dl Hct (42.0-52.0) % MCV (80.0-98.0) fL MCH (27.0-33.0) pg MCHC (31.0-36.0) g/dl RDW (11.0-16.0) % Plt Count (160-400) X10*3/uL MPV (9.4-12.4) fL Immature Gran % (Auto) (0.0-0.4) % Neut % (Auto) (45-73) % Lymph % (Auto) (20-40) % Coal % (Auto) (2-11) % Eos % (Auto) (0-4) % Baso % (Auto) (0-2) % Lymph # (Auto) (1.2-4.9) X10*3/uL Coal # (Auto) (0.1-1.2) X10*3/uL Eos # (Auto) (0.0-0.4) X10*3/uL Baso # (Auto) (0.0-0.2) X10*3/uL Abs Immat Gran (auto) (0.00-0.03) X10*3/uL Absolute Neuts (auto) (2.0-8.3) x10*3/uL Absolute Nucleated RBC (0.0-0.012) X10*3/uL Nucleated RBC % (auto) (0.0-0.2) /100WBC Sodium (135-145) mmol/L Potassium (3.3-5.1) mmol/L Chloride (96-108) mmol/L Carbon Dioxide (22-29) mmol/L Anion Gap (12-20) BUN (9-16) mg/dL Creatinine (0.5-1.4) mg/dL Estim Creat Clear Calc Estimated GFR Random Glucose (60-115) mg/dL Calcium (8.4-10.2) mg/dL Magnesium (1.6-2.6) mg/dL Total Bilirubin (0.0-1.0) mg/dL Direct Bilirubin (0.0-0.5) mg/dL AST (5-37) U/L ALT (0-40) U/L Alkaline Phosphatase (39-117) U/L Troponin I High Sens 24.9 D (<3.5-35.0) ng/L B-Natriuretic Peptide (<100) pg/mL Total Protein (6.5-8.0) g/dL Albumin (3.5-5.0) g/dL Urine Color Urine Appearance Urine pH (5.0-8.0) Ur Specific [place] (1.005-1.025) Urine Protein (NEG-TRACE) MG/DL Urine Glucose (UA) (NEG) MG/DL Urine Ketones (NEG) MG/DL Urine Blood (NEG) Urine Nitrite (NEG) Ur Leukocyte Esterase (NEG) Urine RBC (0) /HPF Urine WBC (0-4) /HPF Ur Squamous Epith Cells /LPF Urine Bacteria /LPF Urine Opiates Screen Not Detected (Not Detect) Urine Fentanyl Screen Not Detected (Not Detect) Ur Barbiturates Screen Not Detected (Not Detect) Ur Phencyclidine Scrn Not Detected (Not Detect) Ur Amphetamines Screen Not Detected (Not Detect) U Benzodiazepines Scrn Not Detected (Not Detect) Urine Cocaine Screen Not Detected (Not Detect) U Marijuana (THC) Screen Not Detected (Not Detect) Ethyl Alcohol mg/dL COVID-19 (SUSI) (Negative) COVID-19 Clin Com ECG Data Attestation: I personally reviewed and interpreted this ECG as follows: ECG interpretation date: 03/25/21 ECG interpretation time: 11:49 Prior ECG tracings: available for review Interpretation: EKG normal sinus rhythm at a rate of 73. CO interval 178. QRS 86. QTC 416. ST changed in V4-V6 unchanged, new ST morphologies in aVL and AVF Discharge Plan Discharge Clinical Impression: Lightheadedness, Acute UTI Patient Disposition: Home, Self-Care Instructions: Lightheadedness (ED) Additional Instructions: Your blood work showed a slight rise in your heart enzymes, otherwise your EKG looked reassuring, no intervention is needed at this time however you need to follow-up with Cardiology outpatient You have a urine infection. Ceftin is an antibiotic, please take as prescribed Your head CT is unchanged from prior. Your chest x-ray is unremarkable. Is important for you to follow-up with cardiology in her primary care doctor If your you develop chest pain, shortness of breath, lightheadedness/dizziness please return to emergency department Rivas an?lisis de channing mostr? un ligero aumento en las enzimas del coraz?n; de lo contrario, rivas electrocardiograma parec?a tranquilizador, no es necesaria ninguna intervenci?n en titus momento; sin embargo, debe realizar un seguimiento con cardiolog?a clyde paciente ambulatorio. Tiene rashad infecci?n de orina. Ceftin es un antibi?daen, t?lund seg?n lo prescrito. La tomograf?a computarizada de rivas kevin no andrade cambiado con respecto a la anterior. Rivas radiograf?a de t?rax no tiene nada especial. Es importante que realice un seguimiento con cardiolog?a en rivas m?dico de atenci?n primaria. Si presenta dolor en el pecho, dificultad para respirar, aturdimiento / mareos, regrese al departamento de emergencias. Prescriptions: New cefuroxime axetil 250 mg tablet 250 mg PO BID 7 Days Qty: 14 RF: 0 No Action metoprolol succinate 200 mg tablet extended release 24 hr 200 mg PO BEDTIME 30 Days Qty: 30 RF: 0 hydralazine 25 mg tablet 25 mg PO TID Qty: 90 RF: 1 spironolactone 25 mg tablet 25 mg PO DAILY Qty: 30 RF: 1 clonidine HCl 0.2 mg tablet 0.1 mg PO BID 30 Days Qty: 30 RF: 1 amlodipine 10 mg tablet 10 mg PO DAILY Qty: 30 RF: 1 lisinopril 40 mg tablet 40 mg PO DAILY Qty: 30 RF: 1 fenofibrate 160 mg tablet 160 mg PO BEDTIME 30 Days Qty: 30 RF: 0 Referrals: Mini Gay MD [Primary Care Provider] - 2 days Saroj Moe MD [Physician] - 5 days Print Language: Kiswahili
[2021-03-25 12:13] LABS: Alanine Aminotransferase 34 U/L (0-40); Albumin Level 4.4 g/dL (3.5-5.0); Alkaline Phosphatase 97 U/L (39-117); Anion Gap 13 (12-20); Aspartate Amino Transferase 34 U/L (5-37); Bilirubin Direct 0.2 mg/dL (0.0-0.5); Bilirubin Total 0.5 mg/dL (0.0-1.0); Blood Urea Nitrogen 19 mg/dL (9-16); Carbon Dioxide 26 mmol/L (22-29); Chloride 107 mmol/L (96-108); Creatinine Clr Calc Pharmacy 51.3; Estimated Glomerular Filt Rate 58; Glucose Random 107 mg/dL (60-115); Potassium 4.4 mmol/L (3.3-5.1); Sodium 142 mmol/L (135-145); Total Protein 7.6 g/dL (6.5-8.0)
[2021-03-25 12:25] LABS: Appearance Urine HAZY; Color Urine YELLOW; Glucose Urine UA NEG (NEG); Leukocyte Esterase Urine 2+ (NEG); Nitrite Urine NEG (NEG); UACC Culture Trigger YES; Urine Blood NEG (NEG); Urine Ketones NEG (NEG); Urine Protein NEG (NEG-TRACE)
[2021-03-25 12:30] LABS: Amphetamine Screen Urine Not Detected (Not Detect); Barbiturates, Urine Not Detected (Not Detect); Benzodiazepines Screen Urine Not Detected (Not Detect); Cannabinoid Screen Urine Not Detected (Not Detect); Cocaine Screen Urine Not Detected (Not Detect); Fentanyl, urine Not Detected (Not Detect); Opiate Screen Urine Not Detected (Not Detect); Phencyclidine Screen Urine Not Detected (Not Detect)
[2021-03-25 12:40] VITALS: BP 134/64; PULSE 72; RESP 16; TEMP 36.9; O2SAT 97
[2021-03-25 12:45] LABS: RBC Urine 0 /HPF (0); Squamous Epithelial Cell Urine TRACE /LPF; WBC Urine 30-49 /HPF (0-4)
[2021-03-25 12:46] LABS: Bacteria Urine TRACE /LPF
[2021-03-25] MEDS: cefTRIAXone sodium 1 GM in 0.9 % Sodium Chloride 50 ML IV (13:37)
[2021-03-25 15:09] VITALS: BP 154/74; PULSE 73; RESP 15; O2SAT 99
[2021-03-25 15:09] LABS: Troponin-I High Sensitivity 24.9 ng/L (<3.5-35.0)
[2021-03-25 15:36] VITALS: BP 155/69; BP 166/74; PULSE 72; PULSE 75
[2021-03-25 15:37] VITALS: BP 170/71; PULSE 75
== END 2021-03-25 16:15 | disposition home or self-care (01) ==
PROVIDERS: Physician Assistant; Emergency Provider Emergency Medicine; PCP Internal Medicine
DX: R42 Dizziness and giddiness (principal); N39.0 Urinary tract infection, site not specified; I10 Essential (primary) hypertension; Z79.899 Other long term (current) drug therapy; Z20.822 Contact with and (suspected) exposure to COVID-19
CPT/HCPCS: 36415; 70450; 71045; 80048; 80076; 80307; 81001; 82077; 83735; 83880; 84484; 85025; 87086; 87635; 93005; 96365; 99284; J0696

== ENCOUNTER → 2021-05-06 14:03 | Outpatient (REF) | payer OTHER, MEDICAID, SELFPAY | LOC: HO.CARD 14:03 | PROVIDERS: PCP Internal Medicine; Referring Provider Family Medicine; Visit Provider Internal Medicine | DX: I63.9 Cerebral infarction, unspecified (principal); R07.2 Precordial pain; I10 Essential (primary) hypertension; I48.0 Paroxysmal atrial fibrillation; E78.00 Pure hypercholesterolemia, unspecified; K75.81 Nonalcoholic steatohepatitis (NASH); G47.33 Obstructive sleep apnea (adult) (pediatric); Z79.82 Long term (current) use of aspirin; Z79.899 Other long term (current) drug therapy | CPT/HCPCS: 99202 ==

== ENCOUNTER 2021-05-11 14:04 | Emergency (ER) | payer OTHER, MEDICAID, SELFPAY ==
--- NOTE | ~2021-05-11 | XR_ITS ---
EXAMINATION: XR CHEST CLINICAL INFORMATION: SOB COMPARISON: Chest 03/25/2021 TECHNIQUE: Frontal view of the chest was obtained. FINDINGS: No significant abnormality is noted involving the heart, lungs, mediastinum, bony thorax or soft tissues. XR/XR chest 1V IMPRESSION: Unremarkable chest examination.
[2021-05-11 14:20] VITALS: BP 174/88; BP 178/61; PULSE 74; PULSE 76; RESP 16; TEMP 36.8; O2SAT 99; BMI 27.3
--- NOTE | 2021-05-11 14:28 | ECG_ITS ---
Test Reason : CHEST PAIN Blood Pressure : / mmHG Vent. Rate : 068 BPM Atrial Rate : 068 BPM P-R Int : 186 ms QRS Dur : 094 ms QT Int : 396 ms P-R-T Axes : 028 -04 043 degrees QTc Int : 421 ms Normal sinus rhythm Nonspecific T wave abnormality Abnormal ECG When compared with ECG of 25-MAR-2021 11:49, T wave inversion no longer evident in Inferior leads Referred By: Generic ED Physician Electronically Signed By:Renato Caldwell
[2021-05-11 15:52] LABS: MANUAL DIFF FLAG NO
[2021-05-11 15:54] LABS: Basophils Absolute Auto 0.1 X10*3/uL (0.0-0.2); Eosinophils Absolute Auto 1.2 X10*3/uL (0.0-0.4); Eosinophils Percent Auto 11.1 % (0-4); Hematocrit 44.7 % (42.0-52.0); Hemoglobin 15.1 g/dl (14.0-18.0); Imm Gran Abs Auto 0.04 X10*3/uL (0.00-0.03); Imm Gran Pct Auto 0.4 % (0.0-0.4); Lymphocytes Absolute Auto 2.2 X10*3/uL (1.2-4.9); Lymphocytes Percent Auto 20.7 % (20-40); Mean Corpuscular HGB Conc 33.8 g/dl (31.0-36.0); Mean Corpuscular Hemoglobin 30.4 pg (27.0-33.0); Mean Corpuscular Volume 89.9 fL (80.0-98.0); Mean Platelet Volume 9.4 fL (9.4-12.4); Monocytes Absolute Auto 0.8 X10*3/uL (0.1-1.2); Monocytes Percent Auto 7.2 % (2-11); Neutrophils Absolute Auto 6.4 x10*3/uL (2.0-8.3); Neutrophils Percent Auto 59.6 % (45-73); Platelet Count 245 X10*3/uL (160-400); Red Blood Count 4.97 X10*6/uL (4.60-5.80); Red Cell Distribution Width 11.9 % (11.0-16.0); White Blood Count 10.7 X10*3/uL (4.8-10.8)
[2021-05-11 16:09] LABS: COVID-19 Test Negative (Negative)
[2021-05-11 16:10] LABS: Anion Gap 13 (12-20); Blood Urea Nitrogen 14 mg/dL (9-16); Calcium 10.6 mg/dL (8.4-10.2); Carbon Dioxide 25 mmol/L (22-29); Chloride 108 mmol/L (96-108); Creatinine Clr Calc Pharmacy 64.6; Estimated Glomerular Filt Rate > 60; Glucose Random 104 mg/dL (60-115); Potassium 4.4 mmol/L (3.3-5.1); Sodium 142 mmol/L (135-145)
[2021-05-11 16:51] LABS: Troponin-I High Sensitivity 7.6 ng/L (<3.5-35.0)
== END 2021-05-11 21:59 | disposition left against medical advice (07) ==
PROVIDERS: Emergency Medicine; Emergency Provider Emergency Medicine
DX: R06.02 Shortness of breath (principal); Z20.822 Contact with and (suspected) exposure to COVID-19
CPT/HCPCS: 71045; 80048; 84484; 85025; 87635; 93005; 99282; 99283

== ENCOUNTER → 2021-06-09 09:28 | Outpatient (REF) | payer MEDICARE, MEDICAID, SELFPAY ==
--- NOTE | 2021-06-09 09:33 | HM_ITS ---
TEST PERFORMED: Cardiac event monitoring. ENROLLMENT PERIOD: 06/09/2021 to 07/09/2021, 30 days. INDICATION: Paroxysmal atrial fibrillation. FINDINGS: In the above monitoring period, underlying rhythm was sinus. Baseline resting rate was 85/min. No arrhythmias documented during this time. CONCLUSION: Underlying rhythm is sinus without any arrhythmias during the monitoring period. MD JAMESON Aguirre/TIFFANIE / [id number] MTDD
== END ==
LOC: HO.CARD 09:28
PROVIDERS: Visit Provider Internal Medicine
DX: I48.0 Paroxysmal atrial fibrillation (principal); I63.9 Cerebral infarction, unspecified
CPT/HCPCS: 93270